=== PATIENT | female | born 1990 | race Caucasian/White ===

== ENCOUNTER 2019-08-11 14:48 | Emergency (ER) | payer MEDICAID, SELFPAY ==
[2019-08-11 15:24] VITALS: BP 130/73; PULSE 91; RESP 23; TEMP 36.6; O2SAT 98; BMI 19.9
--- NOTE | 2019-08-11 15:29 | PC.NURSE ---
Patient seated in the waiting room. Will continue to monitor.
[2019-08-11 16:30] LABS: HCG Qualitative Urine. Negative (Negative)
[2019-08-11 16:49] LABS: Basophils # 0.1 10^3/uL (0.0-0.1); Basophils % 0.8 %; Hematocrit 46.1 % (37.0-47.0); Hemoglobin 15.3 g/dL (11.5-15.3); Lymphocytes # 1.5 10^3/uL (0.8-4.8); Lymphocytes % 16.1 %; Mean Corpuscular HGB Conc 33.2 g/dL (30.0-36.0); Mean Corpuscular Hemoglobin 30.8 pg (28.0-34.0); Mean Corpuscular Volume 92.8 fL (81-99); Mean Platelet Volume 11.4 fL (7.4-10.4); Monocytes # 0.6 10^3/uL (0.2-0.9); Monocytes % 6.4 %; Neutrophils # 7.1 10^3/uL (1.8-7.7); Neutrophils % 76.5 %; Nucleated Red Blood Cells % 0 %; Platelet Count 287 10^3/cmm (130-400); Red Blood Count 4.97 10^6/uL (4.1-5.3); White Blood Count 9.3 10^3/uL (4.0-10.0)
[2019-08-11 18:07] LABS: Alanine Aminotransferase 15 U/L (0-33); Albumin Level 4.7 g/dL (3.5-5.2); Alkaline Phosphatase 57 IU/L (35-105); Anion Gap 20.7 (5-19); Blood Urea Nitrogen 20 mg/dL (6-20); Calcium 9.8 mg/dL (8.5-10.5); Carbon Dioxide 20 mmol/L (22-29); Chloride 98 mmol/L (98-107); Globulin 4.3 g/dL (1.3-4.6); Glomerular Filtration Rate 100.4 mL/min (90-130); Glucose 101 mg/dL (74-109); Potassium 3.7 mmol/L (3.5-5.1); Sodium 135 mmol/L (136-145); Total Bilirubin 0.3 mg/dL (0.15-1.2)
[2019-08-11 18:08] LABS: Aspartate Amino Transferase 21 U/L (0-32); Lipase 16 U/L (13-60)
--- NOTE | 2019-08-11 18:55 | ED_ITS ---
Entered by Sadia Bruce, acting as scribe for Michelle Alvarado MD Aug 11, 2019 14:48 HPI - Abdominal Pain General: Chief Complaint: Abdominal Pain Stated Complaint: RIGHT SIDE PAIN Time Seen by Provider: 08/11/19 18:54 Source: patient, family and RN notes reviewed Mode of arrival: ambulatory Limitations: no limitations History of Present Illness: HPI narrative: 29 yo female presents to ED with complaints of RLQ abdominal pain and R flank pain. The patient states yesterday she felt fine. 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 She said she was up all night throwing up and had diarrhea. She said her back hurts all over but is worse on the R flank. MD elicited complaint: abdominal pain (RLQ) and flank pain (R) Pertinent past history: none Onset (ago): day(s) (last night) Pain Consistency: constant Location: RLQ and R flank Severity: severe Quality: cramping and aching Radiation: none Migration to: no migration Exacerbating factors: movement Relieving factors: nothing Associated Symptoms: Reports diarrhea, nausea and vomiting; Denies chills, dysuria and fever(s) Review of Systems Const: Denies: fever, chills, body aches or change in appetite Eyes: Denies: blurry vision or eye discomfort ENMT: Denies: throat pain or dental pain Card: Denies: chest pain Resp: Denies: shortness of breath GI: Reports: abdominal pain, nausea, vomiting and diarrhea : Denies: painful urination Musc: Denies: neck pain Skin/Breast: Denies: rash Neuro: Denies: headache Psych: Denies: depression Artie/Lymph: Denies: easy bruising All/Imm: Denies: hives PFSH ED PFSH: Statuses (acute, chronic, etc) shown below reflect problem list status as previously entered and may not be historically accurate Social History Smoking and tobacco status: never smoked Physical Exam Const: COMMON NORMALS: no apparent distress, oriented x3 and healthy appearing HENMT: COMMON NORMALS: normocephalic and head/scalp atraumatic HEAD & SCALP: normocephalic and atraumatic Eye: COMMON NORMALS: PERRL and EOMs intact bilaterally PUPIL: Yes PERRL Neck/C-Spine: COMMON NORMALS: full ROM and supple Chest: COMMONS NORMALS: inspection of chest normal and palpation of chest normal Resp: COMMON NORMALS: normal respiratory effort, no retractions, no use of accessory muscles and clear to auscultation bilaterally AUSCULTATION: clear to auscultation bilaterally Cardio: COMMON NORMALS: regular rate, regular rhythm and no murmurs RATE: regular rate RHYTHM: regular rhythm GI: COMMON NORMALS: normal to inspection, nondistended, normoactive bowel sounds, soft to palpation and no masses PALPATION: Yes soft OTHER: rlq tenderness Extremity: COMMON NORMALS: normal to inspection and full ROM Neuro: COMMON NORMALS: oriented x3, moves all extremities and no focal motor deficits Psych: COMMON NORMALS: mental status grossly normal, thought process normal and cooperative THOUGHT PROCESS: normal thought process Skin: COMMON NORMALS: no rashes or lesions noted and no wounds GENERAL SKIN EXAM: no rashes or lesions noted Course Vital Signs: Vital signs: Vital Signs Temperature 98 F 08/11/19 15:24 Pulse Rate 91 08/11/19 15:24 Respiratory Rate 16 08/11/19 19:55 Blood Pressure 130/73 08/11/19 15:24 Pulse Oximetry 98 08/11/19 15:24 MDM - Abdominal Pain MDM Narrative: Medical decision making narrative: Patient presents here with right lower abdominal pain. Patient CT showed colitis. She is well-appearing here otherwise. I spoke to her and discussed findings and will start her on Augmentin. She is to follow-up with her primary care doctor in 3 to 5 days and return to the ER if worsening. Lab Data: Labs: Lab Results 08/11/19 08/11/19 08/11/19 Range/Units 16:09 16:40 17:25 WBC 9.3 (4.0-10.0) 10^3/ uL RBC 4.97 (4.1-5.3) 10^6/u L Hgb 15.3 (11.5-15.3) g/dL Hct 46.1 (37.0-47.0) % MCV 92.8 (81-99) fL MCH 30.8 (28.0-34.0) pg MCHC 33.2 (30.0-36.0) g/dL RDW 13.0 (12.1-15.1) % Plt Count 287 (130-400) 10^3/c mm MPV 11.4 H (7.4-10.4) fL Neut % (Auto) 76.5 % Lymph % (Auto) 16.1 % Patrick % (Auto) 6.4 % Eos % (Auto) 0.0 % Baso % (Auto) 0.8 % Neut # (Auto) 7.1 (1.8-7.7) 10^3/u L Lymph # (Auto) 1.5 (0.8-4.8) 10^3/u L Patrick # (Auto) 0.6 (0.2-0.9) 10^3/u L Eos # (Auto) 0.0 (0.0-0.8) 10^3/u L Baso # (Auto) 0.1 (0.0-0.1) 10^3/u L Nucleated RBC % (a uto) 0 % Nucleated RBCs # 0.0 /100WBC Sodium 135 L (136-145) mmol/L Potassium 3.7 (3.5-5.1) mmol/L Chloride 98 (98-107) mmol/L Carbon Dioxide 20 L (22-29) mmol/L Anion Gap 20.7 H (5-19) BUN 20 (6-20) mg/dL Creatinine 0.7 (0.5-0.9) mg/dL GFR Calculation 100.4 (90-130) mL/min Glucose 101 (74-109) mg/dL Calcium 9.8 (8.5-10.5) mg/dL Total Bilirubin 0.3 (0.15-1.2) mg/dL AST 21 (0-32) U/L ALT 15 (0-33) U/L Alkaline Phosphata se 57 (35-105) IU/L Total Protein 9.0 H (6.6-8.7) g/dL Albumin 4.7 (3.5-5.2) g/dL Globulin 4.3 (1.3-4.6) g/dL Lipase 16 (13-60) U/L HCG, Qual Negative (Negative) Discharge Plan Discharge Patient Disposition: Home, Self-Care Clinical Impression: Colitis Condition: Stable Prescriptions: New EC-Naprosyn 500 mg tablet,delayed release (DR/EC) 500 mg PO BID PRN (Reason: pain) Qty: 20 RF: 0 Augmentin 875-125 mg tablet 1 tab PO Q12H Qty: 14 RF: 0 Discharge Orders: Discharge Order (Routine); Ordered 08/11/19 Ordered By: Michelle Alvarado Referrals: Tanya Sheffield MD [Primary Care Provider] - 4-7 days Discharge Diet: Advance as tolerated Discharge Activity: Resume usual activity Patient Instructions: Infectious Colitis (ED) Coding Level of Care Code ED Juice Scaleman for [facility] Fwd The documentation recorded by the Janis barahona Valerie R, accurately reflects the service I personally performed and the decisions made by Jenny sharp Korby, MD Aug 11, 2019 14:48
--- NOTE | 2019-08-11 18:58 | CTR_ITS ---
PROCEDURE INFORMATION: Exam: CT Abdomen And Pelvis With Contrast Exam date and time: 08/11/2019 7:22 PM Age: 29 years old Clinical indication: Nausea and vomiting; Abdominal pain; Patient HX: Rlq and back pain with n/v since yesterday. ; Additional info: Abd pain TECHNIQUE: Imaging protocol: Computed tomography of the abdomen and pelvis with intravenous contrast. Total DLP: 469.68 mGy-cm Radiation optimization: All CT scans at this facility use at least one of these dose optimization techniques: automated exposure control; mA and/or kV adjustment per patient size (includes targeted exams where dose is matched to clinical indication); or iterative reconstruction. Contrast material: OMNI 300; Contrast volume: 75 ml; Contrast route: 22G; COMPARISON: CT abdomen pelvis w con* [id number] 11/01/2017 7:52 PM FINDINGS: Liver: There is a diffuse decrease in hepatic parenchymal density, consistent with fatty infiltration. Gallbladder and bile ducts: Normal. No calcified stones. No ductal dilation. Pancreas: Normal. No ductal dilation. Spleen: Normal. No splenomegaly. Adrenals: Normal. No mass. Kidneys and ureters: There is no evidence of hydronephrosis. There is no evidence of renal calcifications. Stomach and bowel: There is wall thickening in the distal sigmoid colon and rectum with haziness of the adjacent fat compatible with distal colitis. The loops of small bowel have an appropriate appearance. Appendix: No evidence of appendicitis. Intraperitoneal space: Unremarkable. No free air. No significant fluid collection. Vasculature: Unremarkable.No abdominal aortic aneurysm. Lymph nodes: Unremarkable.No enlarged lymph nodes. Bladder: There is nonspecific bladder wall thickening. This may be related to incomplete distention. Reproductive: Unremarkable as visualized. Bones/joints: Unremarkable. No acute fracture. Soft tissues: Unremarkable. CT/CT abdomen pelvis w con* [id number] IMPRESSION: There is wall thickening in the distal sigmoid colon and rectum with haziness of the adjacent fat compatible with distal colitis. Radiation Dose CTDIVOL = (mGy): DLP = 469.68 (mGy-cm)
[2019-08-11] MEDS: iohexol 300 mg/mL 100 mL Btl IV (19:24)
[2019-08-11 19:55] VITALS: RESP 16
[2019-08-11] MEDS: ondansetron 2 mg/ML SDV 2 mL 4 MG IVP (19:55)
[2019-08-11] MEDS: morphine 4 mg/mL SDV 1 mL IVP (19:55)
[2019-08-11] MEDS: sodium chloride 0.9% 1,000 ML 999 ML IV (19:55)
[2019-08-11 20:52] VITALS: BP 101/62; PULSE 68; RESP 16; TEMP 37.1; O2SAT 100
== END 2019-08-11 20:48 | disposition home or self-care (01) ==
PROVIDERS: Emergency Provider Emergency Medicine; Family Provider Family Medicine; PCP Family Medicine
DX: K52.9 Noninfective gastroenteritis and colitis, unspecified (principal)
CPT/HCPCS: 36415; 74177; 80053; 81025; 83690; 85025; 96360; 96361; 96374; 96375; 99281; 99283; J2270; J2405; J7030; Q9967

== ENCOUNTER → 2022-04-18 15:36 | Outpatient (BNVA) | payer BC, MEDICAID, SELFPAY | PROVIDERS: Family Provider Family Medicine; PCP Family Medicine; Visit Provider Physician Assistant | DX: M54.12 Radiculopathy, cervical region (principal); M25.512 Pain in left shoulder; M40.202 Unspecified kyphosis, cervical region | CPT/HCPCS: 72050; 73030 ==

== ENCOUNTER 2022-04-19 09:50 | Outpatient (CLI) | payer BC, MEDICAID, SELFPAY ==
--- NOTE | 2022-04-19 09:30 | MR_ITS ---
WS: [id number] MRI CERVICAL SPINE NONCONTRAST TECHNIQUE: Sagittal T1, T2 and STIR imaging. Axial T2, gradient, and fiesta imaging. CLINICAL INFORMATION: pain COMPARISON: None. FINDINGS: Straightening of the normal cervical lordosis. Cord signal is normal. No high-grade central canal estefany rowing. C2-C3: Normal. C3-C4: No significant disc bulging. Mild facet arthropathy. Spinal canal and foramen are patent. C4-C5: No significant disc bulging. Mild facet arthropathy. Spinal canal and foramen are patent. C5-C6: Slight annular bulging. Mild facet arthropathy. Spinal canal and foramen are patent. C6-C7: No significant disc bulging. Mild facet arthropathy. Spinal canal is patent. Mild LEFT bony fo raminal narrowing. C7-T1: Normal. Prevertebral soft tissues: Normal. 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 MR/MR cervical spin wo con* [id number] IMPRESSION: 1. Straightening of the normal cervical lordosis. No high-grade central canal narrowing. Cord signal is normal. 2. Mild facet arthropathy C4-C5 C5-C6 and C6-C7. 3. Mild LEFT C6-C7 bony foraminal narrowing. 4. Minimal disc bulging C4-C5 and C5-C6. 5. Chiari I malformation with cerebellar tonsils 5.6 mm below the foramen magn um. This can be further evaluated with MRI head for assessment of the intracran ial structures.
== END 2022-04-19 09:51 | disposition home or self-care (01) ==
LOC: RAD 09:51
PROVIDERS: Family Provider Family Medicine; PCP Family Medicine; Visit Provider Physician Assistant
DX: M47.812 Spondylosis without myelopathy or radiculopathy, cervical region (principal); M48.02 Spinal stenosis, cervical region; M50.322 Other cervical disc degeneration at C5-C6 level; G93.5 Compression of brain
CPT/HCPCS: 72141

== ENCOUNTER 2022-06-14 14:33 | Outpatient (CLI) | payer BC, MEDICAID, SELFPAY ==
--- NOTE | 2022-06-14 14:30 | MR_ITS ---
WS: [id number] MRI LEFT SHOULDER NONCONTRAST TECHNIQUE: Sagittal T2, coronal T1, T2 and proton density imaging. Axial gradient PDE imaging. CLINICAL INFORMATION: pain COMPARISON: None. FINDINGS: Normal AC joint. Mild downsloping acromion. Mild narrowing of the subacromial space. Normal rotator c uff. Normal supraspinatus and infraspinatus. Normal teres minor. Normal subscapularis. Normal bone marrow signal in the humerus and glenoid. Normal biceps tendon in the bicipital groove. N ormal biceps labral anchor. Tiny trace of subcoracoid fluid. Intra-articular biceps tendon is normal. Glenoid labrum appears grossly normal. MR/MR shoulder LT wo con* [id number] IMPRESSION: 1. Mild downsloping acromion. Mild narrowing of the subacromial space. 2. Normal rotator cuff. 3. Normal biceps tendon in the bicipital groove. Normal biceps labral anchor. 4. Trace subcoracoid fluid. 5. No other remarkable findings.
== END 2022-06-14 14:34 | disposition home or self-care (01) ==
LOC: RAD 14:34
PROVIDERS: Family Provider Family Medicine; PCP Family Medicine; Visit Provider Orthopaedic Surgery
DX: M25.512 Pain in left shoulder (principal)
CPT/HCPCS: 73221

== ENCOUNTER → 2022-10-12 09:00 | Outpatient (BNVA) | payer BC, MEDICAID, SELFPAY | PROVIDERS: Family Provider Family Medicine; PCP Family Medicine; Visit Provider Obstetrics & Gynecology | DX: Z00.00 Encounter for general adult medical examination without abnormal findings (principal); N93.9 Abnormal uterine and vaginal bleeding, unspecified | CPT/HCPCS: 80053; 81025; 84443; 85025; 87624 ==

== ENCOUNTER 2022-10-15 13:35 | Emergency (ER) | payer BC, MEDICAID, SELFPAY ==
[2022-10-15 13:56] VITALS: BP 106/72; PULSE 94; RESP 16; TEMP 37.1; O2SAT 97
--- NOTE | 2022-10-15 14:20 | W.ED.FEMALGU ---
HPI - Female Genitourinary General: Chief complaint: Vaginal Bleeding Stated complaint: abd pain, n/v Time Seen by Provider: 10/15/22 14:03 Source: patient and family (mother) Mode of arrival: ambulatory Limitations: no limitations History of Present Illness: Patient is a 32-year-old female presents to ED today along with her mother for concerns of pelvic pain primarily situated on her left side. Patient states she has had pain and heavy vaginal bleeding for approximately 4 months now. She was recently seen by [facility] Dr. Morriosn who performed pelvic exam on , scheduled her for an outpatient ultrasound, started her on oral contraception tabs to help with the bleeding, and discussed plan for possible hysteroscopy/polypectomy/endometrial biopsy. Patient states she has a strong family history of gynecologic cancers including breast, ovarian, uterine. She states over the past several days her pain has become significantly worse. She states vaginal bleeding has vastly improved after starting the norethindrone/ethinyl estradiol tabs. No vaginal discharge. She is sexually active/monogamous with her . She states she feels nauseous secondary to pain. No vomiting. No changes in bowel movements. No urinary complaints. No fevers. MD elicited complaint: pelvic pain Onset (ago): month(s) Severity: severe Female Urogenital Radiation: LLQ Quality of pain: sharp Consistency: constant Vaginal discharge: none Vaginal bleeding: scant (after starting OCPs) Exacerbating factors: none Relieving factors: none Associated symptoms: Reports abdominal pain and nausea; Deny headache(s) or vaginal discharge Treatment prior to arrival: none Sexual activity: Yes (monogamous with ) Patient : No Review of Systems Const: Denies: fever(s), chills, body aches, fatigue or malaise Card: Denies: chest pain Resp: Denies: dyspnea GI: Reports: abdominal pain and nausea; Denies: vomiting, diarrhea, constipation or change in bowel habits : Reports: vaginal bleeding (subsided after starting oral contraception) and pelvic pain; Denies: flank pain, difficulty voiding, dysuria, urinary frequency, urinary urgency, urinary hesitancy, hematuria, genital lesions, genital pruritis, vaginal odor or vaginal discharge Musc: Denies: neck pain, back pain, extremity pain or joint pain Skin/Breast: Denies: rash Neuro: Denies: headache(s) or dizziness [facility] ED PFSH: Family History Unknown Cancer Great great grandmother, breast cancer x3 maternal aunts, breast cancer maternal grandmother, ovarian cancer maternal aunt, ovarian cancer maternal grandmother, uterine cancer maternal grandmother, bladder cancer maternal grandmother, diabetes x2 maternal uncles, diabetes maternal grandmother, HTN and stroke Maternal uncle, HTN and Heart disease Other COPD (chronic obstructive pulmonary disease) Dementia Diabetes Social History Marital status: Life Partner Number of children: 2 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 [employer] Physical Exam Const: COMMON NORMALS: average body habitus, patient oriented x3, no limitations, alert and well nourished GENERAL APPEARANCE: cooperative and in distress (appears uncomfortable secondary to pain) NUTRITIONAL APPEARANCE: thin ORIENTATION/CONSCIOUSNESS: Yes awake, Yes oriented to person, Yes oriented to place and Yes oriented to time HENMT: COMMON NORMALS: normocephalic and atraumatic HEAD & SCALP: normal to inspection, normocephalic and atraumatic Resp: COMMON NORMALS: normal respiratory effort and clear to auscultation bilaterally AUSCULTATION: clear to auscultation bilaterally Cardio: COMMON NORMALS: regular rate and regular rhythm RATE: regular rate RHYTHM: regular rhythm GI: COMMON NORMALS: Normal to inspection, nondistended, normoactive bowel sounds present, Soft to palpation, No hepatosplenomegaly present and no masses INSPECTION: Yes normal to inspection AUSCULTATION: Yes normoactive bowel sounds PALPATION: Yes Soft to palpation, Yes Tenderness to palpation present (GI) (L lower abdomen/pelvis; lidocaine patches on area), No Rigid due to palpation and Yes No hepatosplenomegaly present : COMMON NORMALS: Yes no CVA tenderness BLADDER/KIDNEY EXAM: Yes no CVA tenderness OTHER: deferred as patient just received pelvic exam by [facility] [facility] [employer] [facility] 3 days ago Back/Pelvis: COMMON NORMALS: no CVA tenderness Neuro: ABBY COMA SCALE: document GCS findings Abby coma scale eye opening: Spontaneous Abby coma scale verbal response: Orientated Abby coma scale motor response: Obey commands Abby coma scale total score: 15 COMMON NORMALS: patient oriented x3, moves all extremities, no focal motor deficits and no sensory deficits noted SENSORIUM/ORIENTATION: Yes alert, Yes oriented to person, Yes oriented to place and Yes oriented to time Skin: COMMON NORMALS: no rashes or lesions noted GENERAL SKIN EXAM: no rashes or lesions noted Course Vital Signs: Vital signs: Vital Signs Temperature 98.7 F 10/15/22 13:56 Pulse Rate 77 10/15/22 15:30 Respiratory Rate 14 10/15/22 16:02 Blood Pressure 107/76 10/15/22 15:30 Pulse Oximetry 98 10/15/22 16:02 MDM - Female Medical Decision Making Patient feeling better with medications given here. Her vital signs are stable. Blood work is unremarkable. UA showing hematuria most likely from her vaginal bleeding. It is also contaminated. Ultrasound was negative. Recommend continuing current plan to follow-up with [facility] for further evaluation and treatment of her pain including hysteroscopy/endometrial biopsy and possible exploratory laparoscopy. Lab Data 10/15/22 14:45 10/15/22 14:45 Radiology Impressions Pelvis Ultrasound 10/15/22 14:32 IMPRESSION: 1. Negative uterus and endometrium. 2. Negative bilateral ovaries Laboratory Results WBC 9.2 10^3/uL (4.0-10.0) 10/15/22 14:45 RBC 4.57 10^6/uL (4.1-5.3) 10/15/22 14:45 Hgb 13.8 g/dL (11.5-15.3) 10/15/22 14:45 Hct 41.6 % (37.0-47.0) 10/15/22 14:45 MCV 91.0 fl (81-99) 10/15/22 14:45 MCH 30.2 pg (28.0-34.0) 10/15/22 14:45 MCHC 33.2 g/dL (30.0-36.0) 10/15/22 14:45 RDW 14.4 % (12.1-15.1) 10/15/22 14:45 Plt Count 394 10^3/cmm (130-400) 10/15/22 14:45 MPV 9.8 fL (7.4-10.4) 10/15/22 14:45 Neut % (Auto) 65.9 % 10/15/22 14:45 Lymph % (Auto) 26.5 % 10/15/22 14:45 [place] % (Auto) 5.7 % 10/15/22 14:45 Eos % (Auto) 0.3 % 10/15/22 14:45 Baso % (Auto) 1.2 % 10/15/22 14:45 Neut # (Auto) 6.07 10^3/uL (1.8-7.7) 10/15/22 14:45 Lymph # (Auto) 2.5 10^3/uL (0.8-4.8) 10/15/22 14:45 [place] # (Auto) 0.5 10^3/uL (0.2-0.9) 10/15/22 14:45 Eos # (Auto) 0.0 10^3/uL (0.0-0.8) 10/15/22 14:45 Baso # (Auto) 0.1 10^3/uL (0.0-0.1) 10/15/22 14:45 Nucleated RBC % (auto) 0 % 10/15/22 14:45 Nucleated RBCs # 0.0 /100WBC 10/15/22 14:45 Sodium 132 mmol/L (136-145) L 10/15/22 14:45 Potassium 3.6 mmol/L (3.5-5.1) 10/15/22 14:45 Chloride 100 mmol/L (98-107) 10/15/22 14:45 Carbon Dioxide 18 mmol/L (22-29) L 10/15/22 14:45 Anion Gap 17.6 (5-19) 10/15/22 14:45 BUN 11 mg/dL (6-20) 10/15/22 14:45 Creatinine 0.8 mg/dL (0.5-0.9) 10/15/22 14:45 GFR Calculation 84.2 mL/min (90-130) L 10/15/22 14:45 Glucose 87 mg/dL (65-115) 10/15/22 14:45 Calculated Osmolality 273 mOsm/kg (285-295) L 10/15/22 14:45 Calcium 9.3 mg/dL (8.5-10.5) 10/15/22 14:45 Total Bilirubin 0.2 mg/dL (0.15-1.2) 10/15/22 14:45 AST 41 U/L (0-32) H 10/15/22 14:45 ALT 49 U/L (0-33) H 10/15/22 14:45 Alkaline Phosphatase 59 U/L (35-105) 10/15/22 14:45 Total Protein 8.1 g/dL (6.6-8.7) 10/15/22 14:45 Albumin 4.5 g/dL (3.5-5.2) 10/15/22 14:45 Globulin 3.6 g/dL (1.3-4.6) 10/15/22 14:45 Lipase 19 U/L (13-60) 10/15/22 14:45 HCG, Qual Negative (Negative) 10/15/22 14:30 Urine Color Yellow (Yellow) 10/15/22 14:30 Urine Appearance Cloudy (CLEAR) A 10/15/22 14:30 Urine pH 5 (5-7) 10/15/22 14:30 Ur Specific [place] 1.010 (1.005-1.030) 10/15/22 14:30 Urine Protein Neg (Negative) 10/15/22 14:30 Urine Glucose (UA) Norm (Normal) 10/15/22 14:30 Urine Ketones Negative (Negative) 10/15/22 14:30 Urine Blood 3+ (Negative) H 10/15/22 14:30 Urine Nitrate Negative (Negative) 10/15/22 14:30 Urine Bilirubin Neg (Negative) 10/15/22 14:30 Urine Urobilinogen Norm mg/dL (Negative) 10/15/22 14:30 Ur Leukocyte Esterase Negative (Negative) 10/15/22 14:30 Urine RBC 0-4 /hpf (0-2) H 10/15/22 14:30 Urine WBC 0-4 /hpf (0-5) H 10/15/22 14:30 Ur Squamous Epith Cells 15-25 /hpf (0-5) H 10/15/22 14:30 Amorphous Sediment Not Reportable 10/15/22 14:30 Urine Bacteria Trace /hpf (NONE) 10/15/22 14:30 Discharge Plan Discharge Patient Disposition: Home Clinical Impression: Pelvic pain Condition: Stable Prescriptions: New hydrocodone-acetaminophen 5-325 mg tablet 1 tab PO Q6H PRN (Reason: pain) Qty: 14 0RF ondansetron 4 mg tablet,disintegrating 4 mg PO Q8H PRN (Reason: nausea and vomiting) Qty: 14 0RF No Action Pirmella 1-35 mg-mcg tablet 1 tab PO DIRECTED Qty: 84 0RF Rx Instructions: take 1 tab in the am & 1 tab in the pm for 5 days. THEN take 1 tab daily. Discharge Orders: Discharge ED (Routine); Ordered 10/15/22 Ordered By: Pamela Cortes Referrals: Jorge Morrison MD [Primary Care Provider] - Patient Instructions: Pelvic Pain (ED) Activity Restrictions/Additional Instructions: As we discussed please contact Dr. Morrison this week to schedule a follow-up visit and inform him that pelvic ultrasound was completed in the emergency department today. You need to return to the emergency department for worsening or severe pelvic pain that is not controlled with pain medications at home, fevers, significant vaginal discharge or bleeding, repetitive episodes of vomiting, generally feeling worse or unwell, or any other concerns you may have. I hope you begin to feel better soon. Coding Level of Care Code ED Teacher Lip Reading for Jhoan Palmer
--- NOTE | 2022-10-15 14:32 | USR_ITS ---
PROCEDURE INFORMATION: Exam: US Nonobstetric Pelvis; Complete Exam date and time: 10/15/2022 3:04 PM Age: 32 years old Clinical indication: Pelvic pain; Additional info: Pelvic pain/mainly L TECHNIQUE: Imaging protocol: Transabdominal pelvic nonobstetric ultrasound. Complete exam. Real time ultrasound with image documentation. COMPARISON: CT abdomen pelvis w con* [id number] 08/11/2019 7:35 PM FINDINGS: Uterus: Uterus is normal. Endometrial stripe is 7.2 mm Uterus measures 5.5 cm x 7.8 cm x 5.1 cm Right ovary/adnexa: Ovary is normal. No mass. Normal blood flow. 2.7 cm x 2.9 x 1.5cm Left ovary/adnexa: Ovary is normal. No mass. Normal blood flow. Intraperitoneal space: No intraperitoneal fluid. 3.1 cm x 3.1 cm x 2.1 cm Urinary bladder: Normal. US/US pelvic complete* [id number] IMPRESSION: 1. Negative uterus and endometrium. 2. Negative bilateral ovaries
[2022-10-15 14:49] VITALS: RESP 14
[2022-10-15] MEDS: morphine 4 mg/mL SDV 1 mL IVP (14:49)
[2022-10-15] MEDS: ondansetron 2 mg/ML SDV 2 mL 4 MG IVP (14:50)
[2022-10-15 14:56] LABS: Basophils # 0.1 10^3/uL (0.0-0.1); Basophils % 1.2 %; Eosinophils % 0.3 %; Hematocrit 41.6 % (37.0-47.0); Hemoglobin 13.8 g/dL (11.5-15.3); Lymphocytes # 2.5 10^3/uL (0.8-4.8); Lymphocytes % 26.5 %; Mean Corpuscular HGB Conc 33.2 g/dL (30.0-36.0); Mean Corpuscular Hemoglobin 30.2 pg (28.0-34.0); Mean Platelet Volume 9.8 fL (7.4-10.4); Monocytes # 0.5 10^3/uL (0.2-0.9); Monocytes % 5.7 %; Neutrophils # 6.07 10^3/uL (1.8-7.7); Neutrophils % 65.9 %; Nucleated Red Blood Cells % 0 %; Platelet Count 394 10^3/cmm (130-400); Red Blood Count 4.57 10^6/uL (4.1-5.3); Red Cell Distribution Width 14.4 % (12.1-15.1); White Blood Count 9.2 10^3/uL (4.0-10.0)
[2022-10-15 15:09] LABS: HCG Qualitative Urine. Negative (Negative)
[2022-10-15 15:23] LABS: Alanine Aminotransferase 49 U/L (0-33); Albumin Level 4.5 g/dL (3.5-5.2); Alkaline Phosphatase 59 U/L (35-105); Aspartate Amino Transferase 41 U/L (0-32); Blood Urea Nitrogen 11 mg/dL (6-20); Calcium 9.3 mg/dL (8.5-10.5); Carbon Dioxide 18 mmol/L (22-29); Chloride 100 mmol/L (98-107); Globulin 3.6 g/dL (1.3-4.6); Glomerular Filtration Rate 84.2 mL/min (90-130); Glucose 87 mg/dL (65-115); Lipase 19 U/L (13-60); Osmolality Calculated 273 mOsm/kg (285-295); Sodium 132 mmol/L (136-145); Total Bilirubin 0.2 mg/dL (0.15-1.2); Total Protein 8.1 g/dL (6.6-8.7)
[2022-10-15 15:25] LABS: Urine Appearance Cloudy (CLEAR); Urine Color Yellow (Yellow); pH Urine 5 (5-7)
[2022-10-15 15:26] LABS: Add Urine Microscopic? YES; Bacteria Urine TRACE /hpf; Bilirubin Urine Neg (Negative); Blood Urine 3+ (Negative); Glucose Urine UA Norm (Normal); Ketones Urine Negative (Negative); Leukocyte Esterase Urine Negative (Negative); Nitrate Urine Negative (Negative); Protein Urine Neg (Negative); RBC Urine 0-4 /hpf (0-2); Squamous Epithelial Cell Urine 15-25 /hpf (0-5); Urobilinogen Urine Norm (Negative); WBC Urine 0-4 /hpf (0-5)
[2022-10-15 15:28] LABS: Anion Gap 17.6 (5-19); Potassium 3.6 mmol/L (3.5-5.1)
[2022-10-15 15:30] VITALS: BP 107/76; PULSE 77; RESP 16; O2SAT 99
[2022-10-15 16:02] VITALS: RESP 14; O2SAT 98
[2022-10-15] MEDS: HYDROmorphone 1 mg/mL INJ 1 mL 0.5 MG IVP (16:02)
== END 2022-10-15 17:07 | disposition home or self-care (01) ==
PROVIDERS: Emergency Medicine; Emergency Provider Physician Assistant; PCP Obstetrics & Gynecology
DX: R10.2 Pelvic and perineal pain (principal)
CPT/HCPCS: 76856; 80053; 81001; 81025; 83690; 85025; 96374; 96375; 99285; J1170; J2270; J2405

== ENCOUNTER 2022-10-19 11:49 | Day surgery (SDC) | payer BC, MEDICAID, SELFPAY ==
[2022-10-18 12:39] VITALS: BMI 20.9
[2022-10-19] VITALS (7 sets, daily range): BP systolic 86–111; BP diastolic 47–71; PULSE 59–75; RESP 16–18; TEMP 36.6–36.7; O2SAT 96–99
--- NOTE | 2022-10-19 09:05 | W.PM.OPSUD ---
Surgery/Procedure H&P Update DATE OF PROCEDURE: October 19, 2022 DATE H&P PERFORMED: 10/19/22 CHANGES TO PREVIOUS DOCUMENTATION: none PRIMARY INDICATION FOR PROCEDURE: abnormal uterine bleeding PLANNED PROCEDURE: Operation Date: 10/19/22 13:35 Proposed Procedures p Hysteroscopy with Myosure with endometrial sampling [id number], Possible endometrial polypectomy 42002,R10.2,N93.9(Not Applicable) - Jorge Morrison MD s Poylpectomy(Not Applicable) - Jorge Morrison MD
[2022-10-19 12:13] LABS: OR HCG Qualitative Urine Negative (Negative)
[2022-10-19] MEDS: sodium chloride 0.9% 1,000 ML 30 ML IV (12:33)
--- NOTE | 2022-10-19 13:38 | P.HP_ITS ---
Same Day Surgery H&P Indication for Procedure/HPI DATE OF PROCEDURE: October 19, 2022 CHIEF COMPLAINT/INDICATIONFOR SURGICAL PROCEDURE: abnormal uterine bleeding PREOP DIAGNOSIS: abnormal uterine bleeding PLANNED PROCEDURE: Operation Date: 10/19/22 13:35 Proposed Procedures p Hysteroscopy with Myosure with endometrial sampling [id number], Possible endometr ial polypectomy 21957,R10.2,N93.9(Not Applicable) - Jorge Morrison MD s Poylpectomy(Not Applicable) - Jorge Morrison MD Medications/Allergies* Allergies/Adverse Reactions Allergy/AdvReac Type Severity Reaction Status Date / Time cefixime [From Suprax] Allergy ALGY-Hives Verified 10/12/22 08:13 Current Medications: Generic Name Dose Route Start Last Admin Trade Name Freq PRN Reason Stop Dose Admin Sodium Chloride 1,000 mls @ 30 mls/hr 10/19/22 12:00 10/19/22 12:33 Sodium Chloride 0.9% IV 10/20/22 11:59 30 mls/hr .Q24H TIFFANIE Administration Pertinent History/Comorbid Conditions* Family History (Updated 10/12/22 @ 08:24 by Evangelina Sharma LPN) Diabetes Dementia COPD (chronic obstructive pulmonary disease) Cancer Unknown Great great grandmother, breast cancer x3 maternal aunts, breast cancer maternal grandmother, ovarian cancer maternal aunt, ovarian cancer maternal grandmother, uterine cancer maternal grandmother, bladder cancer maternal grandmother, diabetes x2 maternal uncles, diabetes maternal grandmother, HTN and stroke Maternal uncle, HTN and Heart disease Social History Marital status: Life Partner Number of children: 2 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
--- NOTE | 2022-10-19 14:04 | ANES.PREANE2 ---
Pre-Anesthetic Assessment Height/Weight: Height 1.52 m Weight 48.534 kg Temp Pulse Resp BP Pulse Ox O2 Del Method 98 F 75 18 110/67 99 Room Air 10/19/22 12:02 10/19/22 12:02 10/19/22 12:02 10/19/22 12:02 10/19/22 12:02 10/19/22 12:02 Preop Diagnosis: abnormal uterine bleeding Operation Date: 10/19/22 13:35 Proposed Procedures p Hysteroscopy with Myosure with endometrial sampling 22696, Possible endometrial polypectomy 10122,R10.2,N93.9(Not Applicable) - Jorge Morrison MD s Poylpectomy(Not Applicable) - Jorge Morrison MD Familial anesthetic complications: none Was Beta Latoya taken within 24 hours: N/A Was Clonidine taken within 24 hours: N/A Last intake: Intake Last Liquid Date 10/18/22 Last Liquid Time 23:00 Last Solid Date 10/18/22 Last Solid Time 23:00 Social No alcohol and No tobacco Exam alert, oriented x 3, clear to auscultation bilaterally and regular rate & rhythm Airway Submandibular: within normal limits Cervical ROM: within normal limits Mallampati: Class II Dentition: full History/ROS No significant history except as noted Anesthetic Plan ASA status: 1 Anesthesia: General Medications/Allergies Home Medications Medication Instructions Recorded Confirmed Last Taken Type norethindrone 1 mg-ethinyl 1 tab PO DIRECTED AUB #84 tabs 10/12/22 10/18/22 10/19/22 Rx estradiol 35 mcg tablet (Pirmella) hydrocodone 5 mg-acetaminophen 325 1 tab PO Q6H PRN pain #14 tabs 10/15/22 10/18/22 10/19/22 Rx mg tablet ondansetron 4 mg disintegrating 4 mg PO Q8H PRN nausea and 10/15/22 10/18/22 10/19/22 Rx tablet vomiting #14 tabs Allergies Allergy/AdvReac Type Severity Reaction Status Date / Time cefixime [From Suprax] Allergy ALGY-Hives Verified 10/12/22 08:13 Current Medications Generic Name Dose Route Start Last Admin Trade Name Freq PRN Reason Stop Dose Admin Sodium Chloride 1,000 mls @ 30 mls/hr 10/19/22 12:00 10/19/22 12:33 Sodium Chloride 0.9% IV 10/20/22 11:59 30 mls/hr .Q24H TIFFANIE Administration PFSH Anesthesia Family History Unknown Cancer Great great grandmother, breast cancer x3 maternal aunts, breast cancer maternal grandmother, ovarian cancer maternal aunt, ovarian cancer maternal grandmother, uterine cancer maternal grandmother, bladder cancer maternal grandmother, diabetes x2 maternal uncles, diabetes maternal grandmother, HTN and stroke Maternal uncle, HTN and Heart disease Other COPD (chronic obstructive pulmonary disease) Dementia Diabetes Social History Marital status: Life Partner Number of children: 2 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
--- NOTE | 2022-10-19 14:50 | P.PCN_ITS ---
PACU note Narrative: VSS, Good respiratory effort, report to TECHNICAL PRODUCER Exam: awake
--- NOTE | 2022-10-19 14:50 | PM.PACU ---
PACU note Narrative: VSS, Good respiratory effort, report to POCKET AND PULLEY MACHINE OPERATOR Exam: awake
[2022-10-19] MEDS: HYDROcodone-acetaminophen 5-325 mg Tablet 1 TAB PO (15:15)
[2022-10-19] MEDS: ketorolac 30 mg/mL INJ IVP (15:18)
[2022-10-19] MEDS: HYDROmorphone 1 mg/mL INJ 1 mL 0.5 MG IVP (15:37)
--- NOTE | 2022-10-19 16:31 | ANE.PACU2 ---
Inpatient post-anesthesia follow up: Airway intact: Yes Vital signs: Temperature 98.0 F Pulse Rate 69 Respiratory Rate 18 Blood Pressure 111/71 Pulse Oximetry 99 Oxygen Delivery Me thod Room Air Oxygen Flow Rate Fraction of Inspir ed Oxygen Hydration adequate: Yes Nausea and vomiting: No Pain level: 4 Mental status: Baseline
--- NOTE | 2022-10-20 16:50 | PM.OP ---
Operative Report Date of procedure: October 19, 2022 Pre-op diagnosis: Preop Diagnosis abnormal uterine bleeding Post-op diagnosis: abnormal uterine bleeding normal endometrial cavity by hysteroscopy Post-op findings: normal endometrial cavity no polyps or fibroids small amount of endometrial tissue Procedure done: hysteroscopy, endometrial sampling using Myosure device Specimens removed/disposition: endometrial tissue Surgeon: Jorge Morrison M.D. Estimated blood loss (mL): 5 Estimated blood loss: 5 cc Complications: none Condition: stable Disposition: PACU Brief History: 32 y.o. with abnormal uterine bleeding Procedure: Informed consent for hysteroscopy, endometrial sampling, possible endometrial polypectomy signed. The patient was taken to the OR and placed on the table. Mask anesthesia was induced. The patient was placed in dorsolithotomy position. The perineum was prepped and draped in the usual fashion. A bivalve speculum was placed in the vagina. The anterior cervix was grasped with a sharp-toothed tenaculum. The uterus was sounded to 8 cm. The cervix was serially dilated with Hegar dilators. A hysteroscope was then placed into the endometrial cavity. No polyps or fibroids were seen. There was a small amount of endometrial tissue. No abnormalities were seen. The Myosure device was used to perform endometrial sampling from all quadrants of the uterus. Edndometrial tissue was obtained and sent to pathology. All instruments were then removed from the endometrial cavity, cervix and vagina. No bleeding was seen. The patient was then placed supine and sent to the RR in good condition. Postoperative condition: good EBL: 5 cc Spone and instrument counts correct x two
== END 2022-10-19 15:56 | disposition home or self-care (01) ==
PROVIDERS: PCP Obstetrics & Gynecology; Visit Provider Obstetrics & Gynecology
PROC: 0UDB8ZZ Extraction of Endometrium, Via Natural or Artificial Opening Endoscopic (ICD-10-PCS; CPT 58558; principal; 2022-10-19 13:25)
PROC: (CPT 58558; 2022-10-19 13:25)
DX: N93.9 Abnormal uterine and vaginal bleeding, unspecified (principal); R10.2 Pelvic and perineal pain
CPT/HCPCS: 58558; 81025; 84703; 88305; J1170; J1885; J2704; J3010; J7030

== ENCOUNTER → 2022-10-25 11:39 | Outpatient (BNVA) | payer BC, MEDICAID, SELFPAY | PROVIDERS: PCP Obstetrics & Gynecology; Visit Provider Obstetrics & Gynecology | DX: Z00.00 Encounter for general adult medical examination without abnormal findings (principal) | CPT/HCPCS: 80053; 81000; 85025; 87086 ==

== ENCOUNTER → 2023-03-19 09:00 | Outpatient (BNVA) | payer BC, MEDICAID, SELFPAY | PROVIDERS: PCP Obstetrics & Gynecology; Visit Provider Nurse Practitioner Family | DX: R05.9 Cough, unspecified (principal); J06.9 Acute upper respiratory infection, unspecified | CPT/HCPCS: 87426 ==

== ENCOUNTER → 2025-02-11 15:16 | Outpatient (BNVA) | payer OTHER, BC, MEDICAID, SELFPAY | PROVIDERS: Visit Provider Nurse Practitioner Women's Health | DX: N85.4 Malposition of uterus (principal); N85.00 Endometrial hyperplasia, unspecified; N92.1 Excessive and frequent menstruation with irregular cycle | CPT/HCPCS: 76830; 85025 ==

== ENCOUNTER 2025-03-27 18:24 | Emergency (ER) | payer OTHER, BC, MEDICAID, SELFPAY ==
--- OUTSIDE RECORDS SUMMARY | 2025-03-27 18:29 | XMS_ITS | Clinical Summary ---
Author Organization [facility] Address [address] [address] Phone Care Team Providers Care Town Administrator Name Role Phone Unavailable Primary Care Provider Unavailabl e Medications cyclobenzaprine (FLEXERIL) 10 mg tablet Take 1 Tablet (10 mg) by mouth 3 times daily as needed for Spasm. 15 Tablet 04/08/2022 Active Social History Tobacco Use Types Packs/Day Years Used Date Smoking Tobacco: Never Assessed Comments Unknown Sex and Gender Information Value Date Recorded Sex Assigned at Not on file Legal Sex Female 6:18 PM CDT Gender Identity Not on file Sexual Orientation Not on file Last Filed Vital Signs Vital Sign Reading Time Taken Comments Blood Pressure 111/78 04/08/2022 7:55 PM CDT Pulse 100 04/08/2022 6:55 PM CDT Temperature 36.8 C (98.2 F) 04/08/2022 7:55 PM CDT Respiratory Rate 16 04/08/2022 7:55 PM CDT Oxygen Saturation 98% 04/08/2022 7:55 PM CDT Inhaled Oxygen Concentration - - Weight 49.5 kg (109 lb 3.2 oz) 04/08/2022 6:28 P M CDT Height 152.4 cm (5') 04/08/2022 6:28 PM CDT Body Mass Index 21.33 04/08/2022 6:28 PM CDT Plan of Treatment Health Maintenance Due Date Last Done Comments DTAP/TDAP/TD VACCINES (1 - Tdap) 2011 HEPATITIS B VACCINES (1 of 3 - 19+ 3-dose series) 02/07 HPV/Cotest (21-29) 2013 HPV VACCINES (1 - 3-dose SCDM series) 2019 CERVICAL CANCER SCREENING 2022 HPV/Cotest (30-65) 2022 PAP SMEAR 2022 INFLUENZA VACCINE (#1) 2025 Insurance [employer] [place]
[2025-03-27 18:37] VITALS: BP 122/80; PULSE 109; RESP 14; TEMP 36.8; O2SAT 98
[2025-03-27 19:42] LABS: Glucose Urine UA Negative (Normal); Nitrate Urine Negative (Negative); Specific Gravity, Urine 1.013 (1.005-1.030)
[2025-03-27 19:45] LABS: Add Urine Microscopic? YES
[2025-03-27 20:02] VITALS: RESP 16; O2SAT 98
[2025-03-27] MEDS: morphine 4 mg/mL SDV 1 mL IVP (20:02)
[2025-03-27 20:03] LABS: Hematocrit 38.1 % (36-47); Hemoglobin 12.90 g/dL (11.27-16.99); Mean Corpuscular HGB Conc 33.9 g/dL (30-55); Mean Corpuscular Hemoglobin 30.5 pg (27-33); Mean Corpuscular Volume 90.1 fl (85-98); Nucleated Red Blood Cells % 0 %; Platelet Count 419 10^3/cmm (157-399); Red Blood Count 4.23 10^6/uL (3.85-5.65); White Blood Count 8.40 10^3/uL (3.29-11.43)
[2025-03-27] MEDS: ondansetron 2 mg/ML SDV 2 mL 4 MG IVP (20:03)
[2025-03-27 20:08] LABS: UA Slide Review UA Slide Review Perf
[2025-03-27] MEDS: tranexamic acid 1,000 MG/100 ML PREMIX 600 MG IV (20:10)
[2025-03-27 20:11] VITALS: BP 112/62; PULSE 86; O2SAT 98
[2025-03-27 20:21] LABS: HCG Qualitative Urine. Negative (Negative)
[2025-03-27 20:24] LABS: Alanine Aminotransferase 10 U/L (0-33); Albumin Level 4.2 g/dL (3.5-5.2); Alkaline Phosphatase 52 U/L (35-105); Anion Gap 14.3 (5-19); Aspartate Amino Transferase 13 U/L (0-32); Blood Urea Nitrogen 14 mg/dL (6-20); Calcium 9.3 mg/dL (8.5-10.5); Carbon Dioxide 22 mmol/L (22-29); Chloride 104 mmol/L (98-107); Creatinine Clr Calc Pharmacy 127.6433; Globulin 3.1 g/dL (1.3-4.6); Glucose 85 mg/dL (65-115); Osmolality Calculated 284 mOsm/kg (285-295); Potassium 3.3 mmol/L (3.5-5.1); Sodium 137 mmol/L (136-145); Total Protein 7.3 g/dL (6.6-8.7)
[2025-03-27 21:09] VITALS: BP 118/84; PULSE 81; O2SAT 97
[2025-03-27 21:33] VITALS: RESP 16; O2SAT 96
[2025-03-27] MEDS: oxyCODONE-APAP 5-325 mg Tablet 1 TAB PO (21:33)
[2025-03-27 21:39] VITALS: BP 131/56; PULSE 86; O2SAT 95
--- NOTE | 2025-03-28 06:01 | W.ED.FEMALGU ---
HPI - Female Genitourinary General: Chief complaint: Vaginal Bleeding Stated complaint: passing hand sized clots. Prince costa pain Time Seen by Provider: 03/27/25 19:43 History of Present Illness: 35-year-old female with chronic abnormal uterine bleeding presents with 10 days of heavy vaginal bleeding with palm-sized clots since 03/17 and severe cramping pain rated 8/10, described as labor-like. Reports bleeding approximately 3 weeks each month and soaked through three Depends today. Similar episodes for years; prior tranexamic acid (TXA) provided; hysteroscopy done. Trialed multiple hormonal methods; intrauterine device (IUD) expelled. Currently on a hormonal agent referred to as 'Permella/Eileen' [unclear exact medication name], intended to reduce bleeding rather than for contraception. Wishes to preserve fertility historically but now is open to hysterectomy; has OB surgery consult set for 04/[address] Morrison, whom the patient trusts. Transvaginal ultrasound in early February reportedly showed a thickened endometrium and a retroverted uterus. Denies fever, diarrhea, vomiting; endorses frequent lightheadedness. Dysuria reported; pain felt on left side with urination. No known family bleeding/clotting disorders. Emotional distress and functional impact noted (left work twice due to bleeding). Related Data Home Medications ?Medication ?Instructions ?Recorded ?Confirmed amitriptyline 25 mg tablet 25 mg PO DAILY 02/11/25 02/11/25 escitalopram oxalate 10 mg tablet 10 mg PO DAILY 02/11/25 02/11/25 Previous Rx's ?Medication ?Instructions ?Recorded albuterol sulfate 90 mcg/actuation 2 puff inhalation QID PRN 03/21/23 aerosol inhaler shortness of breath or wheezing #6.7 grams doxycycline hyclate 100 mg capsule 100 mg PO BID #14 caps 03/21/23 ondansetron 4 mg disintegrating 4 mg PO Q8H PRN nausea and 02/11/25 tablet vomiting #14 tabs tranexamic acid 650 mg tablet 1,300 mg (2 x 650 mg) PO TID 5 02/11/25 days #30 tabs oxycodone-acetaminophen 5 mg-325 1 tab PO BID PRN pain #14 tabs 03/27/25 mg tablet (Percocet) tranexamic acid 650 mg tablet 650 mg PO BID 6 days #12 tabs 03/27/25 Allergies Allergy/AdvReac Type Severity Reaction Status Date / Time cefixime (From Suprax) Allergy ALGY-Hives Verified 03/27/25 18:42 PFSH ED PFSH: Medical History (Updated 03/27/25 @ 21:26 by Brandon Loo MD) No pertinent past medical history neghx:htn,dm,thyroid,dvt/pe PCP: Family History Unknown Cancer Great great grandmother, breast cancer x3 maternal aunts, breast cancer maternal grandmother, ovarian cancer maternal aunt, ovarian cancer maternal grandmother, uterine cancer maternal grandmother, bladder cancer maternal grandmother, diabetes x2 maternal uncles, diabetes maternal grandmother, HTN and stroke Maternal uncle, HTN and Heart disease Other COPD (chronic obstructive pulmonary disease) Dementia Diabetes Social History Smoking and tobacco/nicotine status: unknown if used tobacco/nicotine Substance/Drug Use: never Do you think of yourself as: Straight/Heterosexual Physical Exam Const: COMMON NORMALS: no acute distress, patient oriented x3 and alert HENMT: COMMON NORMALS: normocephalic and atraumatic HEAD & SCALP: normocephalic and atraumatic Eye: COMMON NORMALS: Equal, round and reactive pupils present, EOMs intact bilaterally and no scleral icterus PUPIL: Yes Equal, round and reactive pupils present Resp: COMMON NORMALS: normal respiratory effort and No retractions Cardio: COMMON NORMALS: regular rate, regular rhythm and No murmurs present (Cardio) RATE: regular rate RHYTHM: regular rhythm GI: OTHER: Mild suprapubic tenderness, greater on the left; left adnexal region tenderness. Otherwise normal per examiner. Neuro: COMMON NORMALS: patient oriented x3 SENSORIUM/ORIENTATION: Yes alert Skin: COMMON NORMALS: no rashes or lesions noted GENERAL SKIN EXAM: no rashes or lesions noted Course Vital Signs: Vital signs: Vital Signs Temperature 98.3 F 03/27/25 18:37 Pulse Rate 86 03/27/25 21:39 Respiratory Rate 16 03/27/25 21:33 Blood Pressure 131/56 03/27/25 21:39 Pulse Oximetry 95 03/27/25 21:39 Oxygen Delivery Me thod Room Air 03/27/25 20:11 MDM - Female Medical Decision Making 35-year-old female with chronic heavy vaginal bleeding presents with 10 days of very heavy bleeding and severe cramping, passing large clots. Prior IUD expelled, multiple hormonal trials, prior tranexamic acid (TXA), hysteroscopy, and recent ultrasound showing thickened endometrium and retroverted uterus. Lightheadedness reported; dysuria with left-sided discomfort. Pertinent Vital Signs Not Available Physical exam: mild suprapubic tenderness to palpation, left greater than right, with left adnexal tenderness. Tachycardia noted clinically. Hemoglobin is stable. Pain is much better with a single dose of IV morphine. I spoke with on-call ALTERATION WORKROOM SUPERVISOR who agrees patient will likely end up getting a hysterectomy given her long history of dysfunctional uterine bleeding. ALTERATION WORKROOM SUPERVISOR recommended giving her a 5-day course of tranexamic acid which she will be given and close follow-up to ALTERATION WORKROOM SUPERVISOR clinic. Patient is agreeable to the plan Lab Data 03/27/25 19:52 03/27/25 19:52 Laboratory Results WBC 8.40 10^3/uL (3.29-11.43) 03/27/25 19:52 RBC 4.23 10^6/uL (3.85-5.65) 03/27/25 19:52 Hgb 12.90 g/dL (11.27-16.99) 03/27/25 19:52 Hct 38.1 % (36-47) 03/27/25 19:52 MCV 90.1 fl (85-98) 03/27/25 19:52 MCH 30.5 pg (27-33) 03/27/25 19:52 MCHC 33.9 g/dL (30-55) 03/27/25 19:52 RDW 13.2 % (12.1-15.1) 03/27/25 19:52 Plt Count 419 10^3/cmm (157-399) H 03/27/25 19:52 MPV 9.1 fL (7.4-10.4) 03/27/25 19:52 Neut % (Auto) 63.6 % 03/27/25 19:52 Lymph % (Auto) 28.0 % 03/27/25 19:52 Boyd % (Auto) 5.2 % 03/27/25 19:52 Eos % (Auto) 1.5 % 03/27/25 19:52 Baso % (Auto) 1.3 % 03/27/25 19:52 Neut # (Auto) 5.34 10^3/uL (1.8-7.7) 03/27/25 19:52 Lymph # (Auto) 2.4 10^3/uL (0.8-4.8) 03/27/25 19:52 Boyd # (Auto) 0.4 10^3/uL (0.2-0.9) 03/27/25 19:52 Eos # (Auto) 0.1 10^3/uL (0.0-0.8) 03/27/25 19:52 Baso # (Auto) 0.1 10^3/uL (0.0-0.1) 03/27/25 19:52 Nucleated RBC % (auto) 0 % 03/27/25 19:52 Nucleated RBCs # 0.0 /100WBC 03/27/25 19:52 Sodium 137 mmol/L (136-145) 03/27/25 19:52 Potassium 3.3 mmol/L (3.5-5.1) L 03/27/25 19:52 Chloride 104 mmol/L (98-107) 03/27/25 19:52 Carbon Dioxide 22 mmol/L (22-29) 03/27/25 19:52 Anion Gap 14.3 (5-19) 03/27/25 19:52 BUN 14 mg/dL (6-20) 03/27/25 19:52 Creatinine 0.5 mg/dL (0.5-0.9) 03/27/25 19:52 GFR Calculation 142.1 mL/min (90-130) H 03/27/25 19:52 Glucose 85 mg/dL (65-115) 03/27/25 19:52 Calculated Osmolality 284 mOsm/kg (285-295) L 03/27/25 19:52 Calcium 9.3 mg/dL (8.5-10.5) 03/27/25 19:52 Total Bilirubin 0.2 mg/dL (0.15-1.2) 03/27/25 19:52 AST 13 U/L (0-32) 03/27/25 19:52 ALT 10 U/L (0-33) 03/27/25 19:52 Alkaline Phosphatase 52 U/L (35-105) 03/27/25 19:52 Total Protein 7.3 g/dL (6.6-8.7) 03/27/25 19:52 Albumin 4.2 g/dL (3.5-5.2) 03/27/25 19:52 Globulin 3.1 g/dL (1.3-4.6) 03/27/25 19:52 HCG, Qual Negative (Negative) 03/27/25 19:36 Urine Color Red (Yellow) A 03/27/25 19:36 Urine Appearance Turbid (CLEAR) A 03/27/25 19:36 Urine pH 6.5 (5-7) 03/27/25 19:36 Ur Specific [place] 1.013 (1.005-1.030) 03/27/25 19:36 Urine Protein 2+ (Negative) A 03/27/25 19:36 Urine Glucose (UA) Negative (Normal) 03/27/25 19:36 Urine Ketones Negative (Negative) 03/27/25 19:36 Urine Blood 3+ (Negative) A 03/27/25 19:36 Urine Nitrate Negative (Negative) 03/27/25 19:36 Urine Bilirubin Negative (Negative) 03/27/25 19:36 Urine Urobilinogen 0.2 mg/dL (Negative) 03/27/25 19:36 Ur Leukocyte Esterase 3+ (Negative) A 03/27/25 19:36 Urine RBC >100 /hpf (0-2) H 03/27/25 19:36 Urine WBC >100 /hpf (0-5) H 03/27/25 19:36 Ur Squamous Epith Cells 21-50 /hpf (0-5) H 03/27/25 19:36 Amorphous Sediment Not Reportable 03/27/25 19:36 Urine Bacteria Trace /hpf (NONE) 03/27/25 19:36 Hyaline Casts 1.33 /lpf 03/27/25 19:36 No radiology studies performed this visit Discharge Plan Discharge Patient Disposition: Home Clinical Impression: Dysfunctional uterine bleeding Condition: Stable Prescriptions: New oxycodone-acetaminophen [Percocet] 5-325 mg tablet 1 tab PO BID PRN (Reason: pain) Qty: 14 0RF tranexamic acid 650 mg tablet 650 mg PO BID 6 Days Qty: 12 0RF No Action doxycycline hyclate 100 mg capsule 100 mg PO BID Qty: 14 0RF albuterol sulfate 90 mcg/actuation HFA aerosol inhaler 2 puff inhalation QID PRN (Reason: shortness of breath or wheezing) Qty: 6.7 0RF amitriptyline 25 mg tablet 25 mg PO DAILY escitalopram oxalate 10 mg tablet 10 mg PO DAILY tranexamic acid 650 mg tablet 1,300 mg PO TID 5 Days Qty: 30 2RF Rx Instructions: start day before expected period and take three times daily for 5 days ondansetron 4 mg tablet,disintegrating 4 mg PO Q8H PRN (Reason: nausea and vomiting) Qty: 14 1RF Rx Instructions: take one tab every 8 hours as needed Discharge Orders: Discharge ED (Routine); Ordered 03/27/25 Ordered By: Brandon Loo Referrals: Haydee Fernández FNP [Primary Care Provider, Unknown] Jorge Morrison MD [Physician, ALTERATION WORKROOM SUPERVISOR] Referral Note: considering hysterectomy Discharge Diet: Usual diet Discharge Activity: Increase activity as tolerated Patient Instructions: Abnormal (Dysfunctional) Uterine Bleeding (ED), Patient Portal & Blaze Instructions Print Language: Indonesian Coding Level of Care Code ED Plant Electrical Engineer for Jhoan Palmer
== END 2025-03-27 21:29 | disposition home or self-care (01) ==
PROVIDERS: Emergency Provider Student in an Organized Health Care Education/Training Program; PCP Nurse Practitioner Family
DX: N93.8 Other specified abnormal uterine and vaginal bleeding (principal)
CPT/HCPCS: 80053; 81001; 81025; 85025; 87086; 96374; 96375; 99284; J2270; J2405; J9999

== ENCOUNTER → 2025-05-25 13:24 | Outpatient (BNVA) | payer BC, MEDICAID, SELFPAY | PROVIDERS: PCP Nurse Practitioner Family; Visit Provider Obstetrics & Gynecology | DX: N93.9 Abnormal uterine and vaginal bleeding, unspecified (principal) | CPT/HCPCS: 81025; 88305 ==

== ENCOUNTER → 2025-06-02 10:31 | Outpatient (BNVA) | payer BC, MEDICAID, SELFPAY | PROVIDERS: PCP Nurse Practitioner Family; Visit Provider Family Medicine | DX: Z01.818 Encounter for other preprocedural examination (principal); F17.210 Nicotine dependence, cigarettes, uncomplicated; E87.6 Hypokalemia; N92.1 Excessive and frequent menstruation with irregular cycle | CPT/HCPCS: 80053; 85025 ==

== ENCOUNTER 2025-06-23 15:52 | Observation (INO) | payer BC, MEDICAID, SELFPAY ==
[2025-06-23] VITALS (25 sets, daily range): BP systolic 95–126; BP diastolic 52–83; PULSE 82–118; RESP 16–20; TEMP 36.6–37.2; O2SAT 93–99; BMI 25.0
--- NOTE | 2025-06-23 05:06 | W.PM.OPSFHP ---
Same Day Surgery H&P Indication for Procedure/HPI DATE OF PROCEDURE: June 23, 2025 CHIEF COMPLAINT/INDICATIONFOR SURGICAL PROCEDURE: chronic menometrorrhagia PREOP DIAGNOSIS: chronic menometrorrhagia PLANNED PROCEDURE: Operation Date: 06/23/25 12:00 Proposed Procedures p Laparoscopic Assist Vaginal Hysterectomy 91437 N93.9 N92.1(Not Applicable) - Jorge Morrison MD Medications/Allergies* Home Medications ?Medication ?Instructions ?Recorded ?Confirmed ?Type amitriptyline 25 mg tablet 25 mg PO DAILY 02/11/25 06/22/25 History escitalopram oxalate 10 mg tablet 10 mg PO DAILY 02/11/25 06/22/25 History Allergies/Adverse Reactions Allergy/AdvReac Type Severity Reaction Status Date / Time cefixime (From Suprax) Allergy ALGY-Hives Verified 06/22/25 10:46 Pertinent History/Comorbid Conditions* Medical History (Updated 04/04/25 @ 00:00 by MARKY Puckett) No pertinent past medical history neghx:htn,dm,thyroid,dvt/pe PCP: Family History (Updated 10/12/22 @ 08:24 by Evangelina Sharma LPN) Diabetes Dementia COPD (chronic obstructive pulmonary disease) Cancer Unknown Great great grandmother, breast cancer x3 maternal aunts, breast cancer maternal grandmother, ovarian cancer maternal aunt, ovarian cancer maternal grandmother, uterine cancer maternal grandmother, bladder cancer maternal grandmother, diabetes x2 maternal uncles, diabetes maternal grandmother, HTN and stroke Maternal uncle, HTN and Heart disease Social History Smoking and tobacco/nicotine status: current every day tobacco/nicotine user cigarettes Substance/Drug Use: never Do you think of yourself as: Straight/Heterosexual Pertinent Exam Findings alert, oriented x 3, clear to auscultation bilaterally and regular rate & rhythm Recommendations Surgery/Procedure today Coding Level of Care Code Acute Code for Chg Fwd
--- NOTE | 2025-06-23 11:41 | ANES.PREANE2 ---
Pre-Anesthetic Assessment Height/Weight: Height 5 ft Temp Pulse Resp BP Pulse Ox O2 Del Method 97.9 F 101 H 16 126/83 98 Room Air 06/23/25 11:27 06/23/25 11:27 06/23/25 11:27 06/23/25 11:27 06/23/25 11:27 06/23/25 11:27 Preop Diagnosis: chronic menometrorrhagia Operation Date: 06/23/25 12:00 Proposed Procedures p Laparoscopic Assist Vaginal Hysterectomy 99868 N93.9 N92.1(Not Applicable) - Jorge Morrison MD Was Beta Latoya taken within 24 hours: N/A Was Clonidine taken within 24 hours: N/A Social Tobacco Half pack per day pack(s) per day Exam alert, oriented x 3, clear to auscultation bilaterally and regular rate & rhythm Airway Submandibular: within normal limits Cervical ROM: within normal limits Mallampati: Class I Dentition: full Anesthetic Plan ASA status: 2 Anesthesia: General Other: No prior issues with anesthesia NPO since yesterday evening Denies any cardiac issues Smokes nicotine Chronic cough that she states she has had for 2 months now. Denies any fevers Labs reviewed from 06/02/2025 and acceptable for procedure METs greater than 4 Plan for GETA Medications/Allergies Home Medications ?Medication ?Instructions ?Recorded ?Confirmed ?Last Taken ?Type albuterol sulfate 90 mcg/actuation 2 puff inhalation QID PRN 03/21/23 06/22/25 Unknown Rx aerosol inhaler shortness of breath or wheezing #6.7 grams amitriptyline 25 mg tablet 25 mg PO DAILY 02/11/25 06/22/25 06/22/25 History escitalopram oxalate 10 mg tablet 10 mg PO DAILY 02/11/25 06/22/25 06/23/25 08:30 History ondansetron 4 mg disintegrating 4 mg PO Q8H PRN nausea and 02/11/25 06/22/25 Unknown Rx tablet vomiting #14 tabs tramadol 50 mg tablet 50 mg PO BID PRN pain #30 tabs 06/15/25 06/22/25 Unknown Rx Allergies Allergy/AdvReac Type Severity Reaction Status Date / Time cefixime (From Suprax) Allergy ALGY-Hives Verified 06/23/25 11:25 Current Medications Generic Name Dose Route Start Last Admin Trade Name Freq PRN Reason Stop Dose Admin Sodium Chloride 1,000 mls @ 30 mls/hr 06/23/25 11:00 06/23/25 10:58 Sodium Chloride 0.9% IV 06/24/25 10:59 30 mls/hr .Q24H TIFFANIE Administration PFSH Anesthesia Medical History No pertinent past medical history neghx:htn,dm,thyroid,dvt/pe PCP: Family History Unknown Cancer Great great grandmother, breast cancer x3 maternal aunts, breast cancer maternal grandmother, ovarian cancer maternal aunt, ovarian cancer maternal grandmother, uterine cancer maternal grandmother, bladder cancer maternal grandmother, diabetes x2 maternal uncles, diabetes maternal grandmother, HTN and stroke Maternal uncle, HTN and Heart disease Other COPD (chronic obstructive pulmonary disease) Dementia Diabetes Social History Smoking and tobacco/nicotine status: current every day tobacco/nicotine user cigarettes Substance/Drug Use: never Do you think of yourself as: Straight/Heterosexual
--- NOTE | 2025-06-23 12:24 | W.PM.OPSUD ---
Surgery/Procedure H&P Update DATE OF PROCEDURE: June 23, 2025 DATE H&P PERFORMED: 06/23/25 H&P UPDATE INFORMATION: I have reviewed H&P completed within last 30 days, I have examined patient prior to procedure and No changes to prior documentation PREOP DIAGNOSIS: chronic menometrorrhagia PLANNED PROCEDURE: Operation Date: 06/23/25 12:00 Proposed Procedures p Laparoscopic Assist Vaginal Hysterectomy 75000 N93.9 N92.1(Not Applicable) - Jorge Morrison MD
[2025-06-23 12:27] LABS: OR HCG Qualitative Urine Negative (Negative)
[2025-06-23] MEDS: metroNIDAZOLE IV 500 MG/100 ML PREMIX 100 MG IV (13:05)
--- NOTE | 2025-06-23 15:13 | SUR.OPER ---
5909 UPDATED SPOUSE VIA CELL PHONE
--- NOTE | 2025-06-23 15:45 | PM.OP2 ---
Brief Operative Note Date of procedure: 06/23/25 Pre-op diagnosis: menometrorrhagia Post-op diagnosis: same Procedure Done: total laparoscopic hysterectomy Surgeon: Jorge Morrison Estimated blood loss (mL): 150 Complications: none Post-op Plan: floor
--- NOTE | 2025-06-23 16:10 | PM.OP ---
Operative Report Date of procedure: June 23, 2025 Pre-op diagnosis: chronic severe menometrorrhagia Post-op diagnosis: same Post-op findings: Adhesions between omentum and anterior abdominal wall normal uterus normal tubes and ovaries otherwise normal pelvis Procedure done: total laparoscopic hysterectomy Implants: none Specimens removed/disposition: uterus Surgeon: Jorge Morrison MD Communication Instructor: Alan Gracia MD Anesthesia: General Estimated blood loss (mL): 150 Complications: none Findings: see above Condition: stable Disposition: PACU Brief History: 35 y.o. with chronic severe menometrorrhagia Procedure: The patient was taken to the operating room, placed supine on the table. General endotracheal anesthesia was induced. A time-out was performed. Two grams of Ancef and 500 mg of Flagyl IV were given. The patient was placed in dorsolithotomy position for laparoscopic surgery. The abdomen and perineum were prepped and draped in the usual sterile fashion. A Peri uterine manipulator was placed via the cervix for manipulation of the uterus. A bravo catheter was placed which drained clear urine. An umbilical skin incision was made measuring approximately 5 mm. A Veress needle was inserted. After confirming intraperitoneal entry, a pneumoperitoneum was achieved. The Veress needle was removed. A trocar with sheath was placed. A laparoscope was inserted and used to visualize the pelvic organs. Noted were omental adhesions to the abdominal wall. These were carefully lysed using a grasper and Ligasure device. There were no other adhesions noted. There were no evident endometriotic implants. Normal uterus, tubes, and ovaries were seen. The remainder of the pelvis was normal. Two additional skin incisions were made measuring 0.5 cm each in the suprapubic and left lower quadrant. 5 mm trocars with sheaths were inserted via these incisions under laparoscopic visualization. A Ligasure device and endograsper were placed. The Ligasure device was used to divide the round ligaments on both sides followed by the uteroovarian ligaments. These were successfully coagulated and divided without any bleeding. The utero-ovarian vessels were identified, sealed and divided and carried through to the round ligaments. The Ligasure device was then used to divide the uterine vessels perpendicular to the ascending branch, at the level of the internal cervical os. Cephalad traction was maintained during this part of the procedure to reduce possible injury to bilateral ureters. The colpotomizer ring was used to identify the cervico-vaginal junction which was entered using the monopolar hook. Circumferential colpotomy was performed using hook monopolar device. The specimen was removed from the vagina without difficulty. The vaginal cuff was closed using O-Vicyl suture ligature, placed vaginally. Inspection of the pelvis using the laparoscope showed good hemostasis and intact bladder. Following this, all instruments were removed from the abdomen after the pneumoperitoneum was allowed to escape. The laparoscopic skin incisions were then closed using 4-O monocryl sutures. The patient was placed supine and taken to the recovery room. Postoperative condition stable EBL: 150 cc Complications: none To PACU in good condition
[2025-06-23] MEDS: ondansetron 2 mg/ML SDV 2 mL 4 MG IVP ×2 (16:14→16:23)
[2025-06-23] MEDS: fentaNYL 50 mcg/mL INJ 2mL IVP ×2 (16:27→16:37)
[2025-06-23] MEDS: HYDROmorphone 1 mg/mL INJ 1ml 0.5 MG IVP (16:47)
--- NOTE | 2025-06-23 17:01 | ANE.PACU2 ---
Inpatient post-anesthesia follow up: Airway intact: Yes Vital signs: Temperature 98.9 F Pulse Rate 114 Respiratory Rate 17 Blood Pressure 104/52 Pulse Oximetry 93 Oxygen Delivery Me thod Room Air Oxygen Flow Rate 6 Fraction of Inspir ed Oxygen Hydration adequate: Yes Nausea and vomiting: Yes Pain level: 3 Mental status: Baseline
[2025-06-23] MEDS: HYDROcodone-acetaminophen 5-325 mg Tablet PO (17:28)
[2025-06-23] MEDS: fentaNYL 50 mcg/mL INJ 2mL 100 MCG (19:05)
[2025-06-23] MEDS: fentaNYL 50 mcg/mL INJ 2mL 100 MCG IVP ×2 (20:39→21:56)
[2025-06-24] MEDS: HYDROcodone-acetaminophen 5-325 mg Tablet PO ×2 (00:59→06:57)
[2025-06-24 02:30] VITALS: BP 98/65; PULSE 88; RESP 16; O2SAT 97
[2025-06-24 03:18] VITALS: RESP 18; O2SAT 95
[2025-06-24] MEDS: fentaNYL 50 mcg/mL INJ 2mL 100 MCG IVP (03:18)
[2025-06-24 03:19] VITALS: BP 108/67; PULSE 111; RESP 18; O2SAT 97
[2025-06-24 04:58] VITALS: BP 98/63; PULSE 88; RESP 16; TEMP 36.7; O2SAT 99
[2025-06-24 05:14] LABS: Hematocrit 35.7 % (36-47); Hemoglobin 11.80 g/dL (11.27-16.99); Mean Corpuscular HGB Conc 33.1 g/dL (30-55); Mean Corpuscular Hemoglobin 30.6 pg (27-33); Mean Corpuscular Volume 92.5 fl (85-98); Platelet Count 270 10^3/cmm (157-399); Red Blood Count 3.86 10^6/uL (3.85-5.65); White Blood Count 8.81 10^3/uL (3.29-11.43)
[2025-06-24] MEDS: ondansetron 2 mg/ML SDV 2 mL 4 MG IVP (06:18)
[2025-06-24 10:00] VITALS: BP 106/69; PULSE 88; RESP 16; TEMP 36.6; O2SAT 100
--- NOTE | 2025-06-24 14:10 | PM.OBGYPN ---
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 Subjective Subjective: Interval history: c/o mild abdominal pain, relieved with pain medications eating, voiding, ambulating well no bleeding / discharge Vitals/I&O/Wt Last Vital Signs Temp 97.8 F 06/24/25 10:00 Pulse 88 06/24/25 10:00 Resp 16 06/24/25 10:00 BP 106/69 06/24/25 10:00 Pulse Ox 100 06/24/25 10:00 O2 Del Method Room Air 06/24/25 10:00 O2 Flow Rate 6 06/23/25 16:06 Physical Exam Narrative: Comfortable, in no distress Awake, alert Afebrile, VS normal Lungs: clear Cor: RRR Abd: soft, nondistended, nontender Laparoscopic incisions clean and dry Ext: normal Urinary Catheter Management: Al: Cath Placed During This Visit: yes, but has since been removed by the nurse Reason for Continuing Indwelling Catheter: Decision to DC Catheter Urinary Catheter Date of Insertion: 06/23/25 Urinary Catheter Time of Insertion: 13:25 Date Urinary Catheter Removed: 06/24/25 Time Urinary Catheter Discontinued: 06:00 Data 06/24/25 04:45 A&P Assessment and plan 1. Hx of total hysterectomy: s/p total laparoscopic hysterectomy POD #1 Doing well Plan discharge to home Call / return if fever, chills, abdominal pain, bleeding f/u in one week PDMP PDMP Reviewed: Last Reviewed 06/24/25 10:18 EST by Jorge Morrison MD Attestations Medical Necessity Statement*: patient s/p hysterectomy, plan to discharge to home today Coding Level of Care Code Acute Code for Chg Fwd Diagnoses Hx of total hysterectomy Z90.710
--- NOTE | 2025-06-24 14:25 | P.DS_ITS ---
Discharge Providers [employer]CH[employer]ISER Date of Admission: 06/23/25 15:52 Date of Discharge: 06/24/25 Attending Provider at Admission: Jorge Morrison MD Attending Provider at Discharge: Jorge Morrison MD Consults: none Primary RETAIL [employer] MERCHANDISER: Jorge Morrison MD Primary Care Provider: DARIUS Barkley Diagnoses at Discharge Discharge Diagnosis 1. Hx of total hysterectomy: Details from hospital stay: 35 y.o. history of abnormal heavy and prolonged periods and chronic pelvic pain admitted for hysterectomy total laparoscopic hysterectomy was performed without any complications patient did well postoperatively and was discharged to home on the first postoperative day Reason for Visit Reason for Visit: N93.9 Brief History: 35 y.o. history of abnormal heavy and prolonged periods and chronic pelvic pain admitted for hysterectomy Hospital Course Hospital Course 35 y.o. history of abnormal heavy and prolonged periods and chronic pelvic pain admitted for hysterectomy total laparoscopic hysterectomy was performed without any complications patient did well postoperatively and was discharged to home on the first postoperative day Physical Exam Narrative: Comfortable, in no distress Awake, alert Afebrile, VS normal Lungs: clear Cor: RRR Abd: soft, nondistended, nontender Laparoscopic incisions clean and dry Ext: normal Urinary Catheter Management: Al: Cath Placed During This Visit: yes, but has since been removed by the nurse Reason for Continuing Indwelling Catheter: Decision to DC Catheter Urinary Catheter Date of Insertion: 06/23/25 Urinary Catheter Time of Insertion: 13:25 Date Urinary Catheter Removed: 06/24/25 Time Urinary Catheter Discontinued: 06:00 History History History 2 Term 0 2 Miscarriages/Ectopic 0 Living Children 2 Discharge Data Studies Completed and Pending Completed Studies During Hospitalization Category Date Time Status Pathology: Surgical [PTH] Routine Pth 06/23/25 15:36 Completed Laboratory Results WBC 8.81 10^3/uL (3.29-11.43) 06/24/25 04:45 RBC 3.86 10^6/uL (3.85-5.65) 06/24/25 04:45 Hgb 11.80 g/dL (11.27-16.99) 06/24/25 04:45 Hct 35.7 % (36-47) L 06/24/25 04:45 MCV 92.5 fl (85-98) 06/24/25 04:45 MCH 30.6 pg (27-33) 06/24/25 04:45 MCHC 33.1 g/dL (30-55) 06/24/25 04:45 RDW 12.8 % (12.1-15.1) 06/24/25 04:45 Plt Count 270 10^3/cmm (157-399) 06/24/25 04:45 MPV 9.6 fL (7.4-10.4) 06/24/25 04:45 Urine HCG, Qual Negative (Negative) 06/23/25 10:49 Blood Type O Positive 06/23/25 12:20 Rho(D) Type Rh positive 06/23/25 12:20 Antibody Screen Negative 06/23/25 12:20 Procedures Performed total laparoscopic hysterectomy Vitals Last Vital Signs Temp 97.8 F 06/24/25 10:00 Pulse 88 06/24/25 10:00 Resp 16 06/24/25 10:00 BP 106/69 06/24/25 10:00 Pulse Ox 100 06/24/25 10:00 O2 Del Method Room Air 06/24/25 10:00 O2 Flow Rate 6 06/23/25 16:06 Results Labs OB ([facility]): Blood Type O Positive 06/23/25 Antibody Screen Negative 06/23/25 Hct, (36-47) 37.1 % 06/26/25 Hgb, (11.27-16.99) 12.40 g/dL 06/26/25 Rho(D) Type Rh positive 06/23/25 Plt Count, (157-399) 234 10^3/cmm 06/26/25 HCG, Qual, (Negative) Negative 05/25/25 Micro Urine Specimen 03/27/25 Discharge Plan Discharge Patient Disposition: Home Condition: Stable Prescriptions: New oxycodone-acetaminophen [Percocet] 5-325 mg tablet 1 tab PO Q8H PRN (Reason: pain) Qty: 30 0RF Continued albuterol sulfate 90 mcg/actuation HFA aerosol inhaler 2 puff inhalation QID PRN (Reason: shortness of breath or wheezing) Qty: 6.7 0RF amitriptyline 25 mg tablet 25 mg PO DAILY escitalopram oxalate 10 mg tablet 10 mg PO DAILY ondansetron 4 mg tablet,disintegrating 4 mg PO Q8H PRN (Reason: nausea and vomiting) Qty: 14 1RF Rx Instructions: take one tab every 8 hours as needed tramadol 50 mg tablet 50 mg PO BID PRN (Reason: pain) Qty: 30 0RF Discharge Order = DC NOW: Discharge Order (Routine); Ordered 06/24/25 Ordered By: Jorge Morrison Referrals: Jorge Morrison MD [Physician, [employer]] - 07/08/25 12:45 pm Discharge Diet: Usual diet Discharge Activity: Increase activity as tolerated Patient Instructions: Acute Wound Care (DC), Laparoscopic Hysterectomy (GEN), OB Laproscopic Surgery - [facility], OB Food/Drug Interaction Guide, Opioid Safety, Post Anesthesia Care, Patient Portal & Blaze Instructions Discharge Attestations [employer] MERCHANDISER Time Spent in Discharge Care*: less than 30 min Coding Level of Care Code Acute Code for Chg Fwd Diagnoses Hx of total hysterectomy Z90.710
== END 2025-06-24 10:34 | disposition home or self-care (01) ==
LOC: OBGYN 15:52
PROVIDERS: Admitting Provider Obstetrics & Gynecology; PCP Nurse Practitioner Family; Visit Provider Obstetrics & Gynecology
PROC: 0UT9FZZ Resection of Uterus, Via Natural or Artificial Opening With Percutaneous Endoscopic Assistance (ICD-10-PCS; CPT 58550; principal; 2025-06-23 11:50)
DX: N92.1 Excessive and frequent menstruation with irregular cycle (principal); K66.0 Peritoneal adhesions (postprocedural) (postinfection); F17.210 Nicotine dependence, cigarettes, uncomplicated; N88.8 Other specified noninflammatory disorders of cervix uteri; N80.03 Adenomyosis of the uterus
CPT/HCPCS: 58550; 36415; 81025; 85027; 86850; 86900; 88307; A4216; G0378; J1100; J1171; J1200; J1885; J2250; J2405; J2704; J3010; J3475; J3490; J7030; J9999

== ENCOUNTER 2025-06-26 15:49 | Emergency (ER) | payer BC, MEDICAID, SELFPAY ==
--- OUTSIDE RECORDS SUMMARY | 2025-01-12 07:00 | XMS_ITS ---
Author Organization [facility] Address [address] [place] [address] Care Team Providers Care Hedge Fund Manager Name Role Phone Mau Ricardo Unavailable [phone] REASON FOR VISIT eval. chiari Malformation Encounters Encounter Location Date Provider Diagnosis [facility] [address] [place] [address] 01/12/2025 Mau Ricardo Plan Of Treatment No Information Progress Notes * CLAREELKE POSADASPERNELLCEDOB: 2 (35 yo F)Acc No.[id number]:01/12/2025 Progress Notes Patient: TYREE OG Provider: Homer Ricardo APRN :1990 A ge:34 Y S ex:Female Date:01/12/2025 Address:[address] [place], [place] [id number] Subjective: * Chief Complaints: * e sergio. chiari Malformation Billing Information: * Procedure Codes: * Electronic signature of Will DARIUS Campos on 06/26/2025 at 03:55 PM TECHNICIAN TERMINAL AND REPEATER Sign off status: Pending * Provider: Homer Ricardo APRN Date: 0 01/12/2025 Generated for Jay villarreal/Mckenzie/eTransmitting on: 1 08/27/2024 03:55 PM TECHNICIAN TERMINAL AND REPEATER
[2025-06-26 15:51] VITALS: BP 116/80; PULSE 105; RESP 18; TEMP 36.8; O2SAT 98
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
--- OUTSIDE RECORDS SUMMARY | 2025-06-26 15:55 | XMS_ITS | Data Portability ---
Author Organization [facility], Former[facility] Address [address] [place] [address] Care Team Providers Care Graduate Teacher Education Name Role Phone FEDERICO GARCIA Surveillance Director Unavailable Assessment Encounter Date Assessment Date Assessment LastModified by Organization Details LastModified Time 04/23/2017 04/23/2017 depression smokes (pt also has dx of crohn's disese) Goals (Patient's Steps): pt will read information sent by the [facility] nurse pt will recognize the risks associated with smoking pt will learn techinques to help decrease stress pt will be compliant with meds and appointments pt will learn to read food labels pt will understand the disease process of crohns Interventions (Nurse's Steps): nurse to provide information on the risks of tobacco use nurse to provide support and encouragement nurse to provide information on the risks of tobacco use nurse to provide support and encouragement nurse to provide information on how to read food labels nurse to provide information on daily exercise Target Date:ongoing until the pt is smoke free and goals are met. 04-23-17 pt has not had a recent office visit. pt is overdue for adult annual preventive visit. sent pt a letter to remind her to make an appointment. sent pt case to Dr. Cosme to remind him that pt has not been to the clinic in several months, but per cyber, pt is still having meds filled by dr. Cosme. also sent information sheet on self breast exam teodoro hastings 04-04-17 encouraged pt to make an appointment for follow up . she says her crohn's has been acting up and she is almost out of Advair. demographics updated. teodoro hastings 02-09-17 cyber check done. teodoro hastings 02-02-17 sent information fight the fire of Crohn's Disease: Quit Smoking 01-02-17 sent information sheet on risks of tobacco and Nicotine and tobacco teodoro hastings 11-20-16 cyber check teodoro hastings 10-26-16 sent Don't take a vacation from your healthy habits this summer and Get moving teodoro hastings 08-09-16 pt recently suffered shoulder injury, sent information on shoulder exercises and shoulder pain . teodoro hastings Not available 04/23/2017 10:54:00 05/16/2017 05/16/2017 cyber alerts A: Antidepressant Med: Compliance w/ treatment B: Tablet splitting opportunity: SSRIs C: Antiemetic: Inappropriate use of 5-HT-3 Receptor antagonist mpr% proair 92%, citalopram 54%, advair 59% depression smokes (pt also has dx of crohn's disese) Goals (Patient's Steps): pt will read information sent by the [facility] nurse pt will recognize the risks associated with smoking pt will learn techinques to help decrease stress pt will be compliant with meds and appointments pt will learn to read food labels pt will understand the disease process of crohns Interventions (Nurse's Steps): nurse to provide information on the risks of tobacco use nurse to provide support and encouragement nurse to provide information on the risks of tobacco use nurse to provide support and encouragement nurse to provide information on how to read food labels nurse to provide information on daily exercise Target Date:ongoing until the pt is smoke free and goals are met. 05-16-17 cyber check done. pt appears to be filling proair as prescribed.other meds about 1/2 the time.teodoro hastings 04-23-17 pt has not had a recent office visit. pt is overdue for adult annual preventive visit. sent pt a letter to remind her to make an appointment. sent pt case to Dr. Cosme to remind him that pt has not been to the clinic in several months, but per cyber, pt is still having meds filled by dr. Cosme. also sent information sheet on self breast exam teodoro hastings 04-04-17 encouraged pt to make an appointment for follow up . she says her crohn's has been acting up and she is almost out of Advair. demographics updated. teodoro hastings 02-09-17 cyber check done. teodoro hastings 02-02-17 sent information fight the fire of Crohn's Disease: Quit Smoking 01-02-17 sent information sheet on risks of tobacco and Nicotine and tobacco teodoro hastings 11-20-16 cyber check teodoro hastings 10-26-16 sent Don't take a vacation from your healthy habits this summer and Get moving teodoro hastings 08-09-16 pt recently suffered shoulder injury, sent information on shoulder exercises and shoulder pain . teodoro hastings Not available 05/16/2017 10:53:42 06/26/2017 06/26/2017 depression smokes (pt also has dx of crohn's disese) Goals (Patient's Steps): pt will read information sent by the [facility] nurse pt will recognize the risks associated with smoking pt will learn techinques to help decrease stress pt will be compliant with meds and appointments pt will learn to read food labels pt will understand the disease process of crohns Interventions (Nurse's Steps): nurse to provide information on the risks of tobacco use nurse to provide support and encouragement nurse to provide information on the risks of tobacco use nurse to provide support and encouragement nurse to provide information on how to read food labels nurse to provide information on daily exercise Target Date:ongoing until the pt is smoke free and goals are met. 06-26-17 sent pt information sheet on healthy holiday eating. also sent pt case to dr. cosme to have him see the pt. teodoro loja 05-16-17 cyber check done. pt appears to be filling proair as prescribed.other meds about 1/2 the time.teodoro hastings 04-23-17 pt has not had a recent office visit. pt is overdue for adult annual preventive visit. sent pt a letter to remind her to make an appointment. sent pt case to Dr. Cosme to remind him that pt has not been to the clinic in several months, but per cyber, pt is still having meds filled by dr. Cosme. also sent information sheet on self breast exam teodoro hastings 04-04-17 encouraged pt to make an appointment for follow up . she says her crohn's has been acting up and she is almost out of Advair. demographics updated. teodoro hastings 02-09-17 cyber check done. teodoro hastings 02-02-17 sent information fight the fire of Crohn's Disease: Quit Smoking 01-02-17 sent information sheet on risks of tobacco and Nicotine and tobacco teodoro hastings 11-20-16 cyber check teodoro hastings 10-26-16 sent Don't take a vacation from your healthy habits this summer and Get moving teodoro hastings 08-09-16 pt recently suffered shoulder injury, sent information on shoulder exercises and shoulder pain . teodoro hastings Not available 06/26/2017 11:14:38 08/16/2017 08/16/2017 [facility] Discharge form submitted to Medicaid. Unable to contact. Discharge letter mailed to patient. [facility] [email or web address] Not available 08/16/2017 15:20:02 Plan of Treatment Reminders Order Date Submit Date Provider Last Modified By Organization Details Last Modified Time Details Appointments None record ed. Lab None record ed. Referral None record ed. Procedures None record ed. Surgeries None record ed. Imaging None record ed. Medication Orders None record ed. Patient TargetsNo targets recorded. Patient InstructionsNo instructions recorded. Reason for Referral None Reported. Problems Name Problem SNOMED Code Status Onset Date Resolution Date Notes Provider Name and Address Organization Details Recorded Time Asthma 956585116 Active 2014 Created By: LORNA MORALEZ ; Modified By: DOUGIE RAE; Category : DD; Examiner : Lorna Moralez; Medicine Descript ion: ASTHMA; Display in Medcin: NO; Display in ESB: NO; Confiden tiality Level: Level 1; Type: Diagnosi s Not Available [facility] 6 21:24:16 Acute sinusiti s [id number] Completed 201402/02/2017 Created By: DOUGIE HOUSTON; Modified By: DOUGIE RAE; Category : DD; Examiner : Lorna Moralez; Medicine Descript ion: SINUSITI S ACUTE; Display in Medcin: NO; Display in ESB: NO; Confiden tiality Level: Level 1; Type: Diagnosi s Federico Garcia [facility] 7 12:21:10 Cough [id number] Completed 201409/20/2016 Created By: DOUGIE HOUSTON; Modified By: DOUGIE RAE; Category : DD; Examiner : Lorna Moralez; Medicine Descript ion: cough; Display in Medcin: NO; Display in ESB: NO; Confiden tiality Level: Level 1; Type: [facility]osi s [facility] 12:22:37 Blood in urine [id number] Completed 201402/02/2017 Created By: GABRIEL LIRA; Modified By: DOUGIE RAE; Category : DD; Examiner : Lorna Moralez; Medicine Descript ion: blood in urine; Display in Medcin: NO; Display in ESB: NO; Confiden tiality Level: Level 1; Type: Diagnosi s Removal Reason: [facility] 7 12:[facility]:30 Low back pain [id number] Active 2014 Created By: LORNA MORALEZ ; Modified By: DOUGIE RAE; Category : DD; Examiner : Lorna Moralez; Medicine Descript ion: lower back pain; Display in Medcin: NO; Display in ESB: NO; Confiden tiality Level: Level 1; Type: Diagnosi s Not Available [facility] 6 21:24:17 Abdomina l pain 51529940 Active 2014 Created By: LORNA MORALEZ ; Modified By: DOUGIE RAE; Category : DD; Examiner : Lorna Moralez; Medicine Descript ion: abdomina l pain; Display in Medcin: NO; Display in ESB: NO; Confiden tiality Level: Level 1; Type: Diagnosi s Not Available [facility] 6 21:24:17 Hemorrho ids [id number] Active 2014 Created By: LORNA MORALEZ ; Modified By: DOUGIE RAE; Category : DD; Examiner : Lorna Moralez; Medicine Descript ion: HEMORRHO IDS; Display in Medcin: NO; Display in ESB: NO; Confiden tiality Level: Level 1; Type: Diagnosi s Not Available [facility] 6 21:24:21 Evaluati on procedur e Completed 201409/20/2016 Created By: AALIYAH PENA; Modified By: DOUGIE REA; Category : DD; Examiner : Aaliyah Ledezma; Medicine Descript ion: Observat ion For Suspecte d Conditio n; Display in Medcin: NO; Display in ESB: NO; Confiden tiality Level: Level 1; Type: Diagnosi s [facility] 7 12:22:43 Lymphade nopathy [id number] Completed 201402/02/2017 Created By: LORNA MORALEZ ; Modified By: DOUGIE RAE; Category : DD; Examiner : Lorna Moralez; Medicine Descript ion: Lymph Nodes Enlarged ; Display in Medcin: NO; Display in ESB: NO; Confiden tiality Level: Level 1; Type: Diagnosi s Removal Reason: [facility] 7 12:21:56 Urinary tract infectio us disease 50443626 Completed 201502/02/2017 Created By: DOUGIE RAE; Modified By: DOUGIE RAE; Category : DD; Examiner : Brandon Cosme; Medicine Descript ion: URINARY TRACT INFECTIO N; Display in Medcin: YES; Display in ESB: YES; Confiden tiality Level: Level 1; Type: Diagnosi s Removal Reason: [facility] 7 12:21:41 Complica tion due to Crohn's disease [id number] 48159 Active 2015 Created By: DOUGIE RAE; Modified By: DOUGIE RAE; Category : DD; Examiner : Brandon Cosme; Medicine Descript ion: CROHN'S DISEASE WITH COMPLICA TIONS; Display in Medcin: YES; Display in ESB: YES; Confiden tiality Level: Level 1; Type: Diagnosi s Not Available [facility] 6 21:24:16 Iron deficien cy anemia secondar y to inadequa te dietary iron intake 303096926 Active 2015 Created By: DOUGIE RAE; Modified By: DOUGIE RAE; Category : DD; Examiner : Brandon Cosme; Medicine Descript ion: IRON DEFICIEN CY ANEMIA; Display in Medcin: YES; Display in ESB: YES; Confiden tiality Level: Level 1; Type: Diagnosi s Not Available [facility] 6 21:24:17 Generali zed anxiety disorder 75423937 Active 2015 Created By: DOUGIE RAE; Modified By: DOUGIE RAE; Category : DD; Examiner : Brandon Cosme; Medicine Descript ion: OVERANXI OUS DISORDER ; Display in Medcin: YES; Display in ESB: YES; Confiden tiality Level: Level 1; Type: Diagnosi s Not Available [facility] 6 21:24:16 Single major depressi ve episode, moderate Active 2015 Created By: DOUGIE RAE; Modified By: DOUGIE RAE; Category : DD; Examiner : Brandon Cosme; Medicine Descript ion: INVOLUTI ONAL MELANCHO GUSTAVO (MDD) MODERATE ; Display in Medcin: YES; Display in ESB: YES; Confiden tiality Level: Level 1; Type: Diagnosi s Not Available [facility] 6 21:24:21 Chronic cluster headache 609763850 Active 2016 [place] [facility] 7 17:37:41 Migraine 15058783 Active 2016 [place] [facility] 7 17:37:56 Problem Notes None recorded. Procedures Surgical History Date Name Laterality Status Provider Name and Address Organization Details Recorded Time 6 Date of Last Colonoscopy completed Cindipaty العراقي [facility] 07/06/2016 10:50:39 3 Date of Last Pap Smear completed Cindi العراقي [facility] 07/06/2016 10:47:25 Imaging Results None recorded. Procedure Notes None recorded. Medical Equipment None Reported. Allergies Allergen ID Allergen Name Allergen Category Reaction Reaction Severity Criticality Documentation Date Start Date Code Code System Note Provider Name and Address Organization Details Recorded Time 31557 Suprax medicatio n hives Not available Not available 06/11/201620149 9 RxNorm React ion: Urtic aria (hive s); Comme nt: Last Edite d: 11-10 11:38 :15; Not Available [facility] 6 03:40:58 Medications Name Sig Start Date Stop Date Status Note LastModified by Organization Details LastModified Time citalopram 10 mg tablet TAKE 1 TABLET BY MOUTH EVERY DAY DIRECTED active Not Available Not Available No t Available omeprazole 40 mg capsule,del ayed release TAKE 1 CAPSULE(4 0 MG) BY MOUTH EVERY DAY BEFORE A MEAL active Not Available Not Available No t Available Imitrex 50 mg tablet 1 tab at onset of GRIER, may repeat med in 2 hrs if no relief, max 200mg per day. 2016 active Not Available Not Available Not Avai lable Advair Diskus 250 mcg-50 mcg/dose powder for inhalation INHALE 1 PUFF BY MOUTH TWICE DAILY 2016 active Not Available Not Available Not Avai lable ondansetron 4 mg disintegrat ing tablet Take 1 tablet every 6 hours by oral route as needed. 2015 active Not Available Not Available Not Avai lable ondansetron 4mg PRN 04/23 completed Not Available Not Available Not Available ProAir HFA 90 mcg/actuati on aerosol inhaler INHALE 2 PUFFS BY MOUTH 4 TIMES PER DAY NEEDED active Not Available Not Available No t Available Vitals None Recorded Social History Question Answer Notes LastModified by Organizat ion Details LastModified Time Tobacco Smoking Status Current Every Day Smoker Cnidi العراقي [facility] 07/06/2016 10:42:46 Do You Have An Advance Directive? No [email or web address] Information n ot available 07/06/2016 Are You Blind Or Do You Have Difficulty Seeing? No Information n ot available 07/06/2016 What Is Your Level Of Caffeine Consumption? Moderate Information not available 07/06/2016 How Much Tobacco Do You Chew? None [email or web address] Information not available 07/06/2016 Commercial Sex Work No [email or web address] Information not available 07/06/2016 Are You Deaf Or Do You Have Serious Difficulty Hearing? No [email or web address] Information not available 07/06/2016 What Type Of Diet Are You Following? REGULAR [email or web address] Information n ot available 07/06/2016 Which Illicit Or Recreational Drugs Have You Used? No [email or web address] Information not available 07/06/2016 Education 12 Information no t available 07/06/2016 Are There Any Guns Present In Your Home? Yes [email or web address] Information not available 07/06/2016 Hard Of Hearing Or Deaf In One Or Both Ears? No [email or web address] Information not available 07/06/2016 High Number Of Sexual Partners No [email or web address] Information not available 07/06/2016 History Of Inconsistent/no Condom Use No [email or web address] Information not available 07/06/2016 International Travel No [email or web address] Information not available 07/06/2016 Legally Blind In One Or Both Eyes? No Information no t available 07/06/2016 In The Past 6 Months Have You Fallen No [email or web address] Information not available 07/06/2016 Marital Status Single [email or web address] Informatio n not available 07/06/2016 Mother With HIV? No [email or web address] Informat ion not available 07/06/2016 Seat Belts Used Routinely Yes [email or web address] Information not available 07/06/2016 Sexual Partner Has HIV? No [email or web address] Information not available 07/06/2016 Sexual Partner Uses IV Drugs? No [email or web address] Information not available 07/06/2016 Smoke Alarm In Home Yes Information not available 07/06/2016 At What Age Did You Start Smoking Tobacco? 22 [email or web address] Information not available 07/06/2016 How Much Tobacco Do You Smoke? 0.5 PPD [email or web address] Information not available 07/06/2016 General Stress Level High [email or web address] Information not available 07/06/2016 Do You Use Sunscreen Routinely? No Information not available 07/06/2016 How Many Years Have You Smoked Tobacco? 3 [email or web address] Information not available 07/06/2016 Have You Used IV Drugs? No [email or web address] Information not available 07/06/2016 Do You Have Difficulty Walking Or Climbing Stairs? No [email or web address] Information not available 07/06/2016 Sex: Unknown Functional Status Question Answer Note LastModified by Organizat ion Details LastModified Time What is your level of alcohol consumption? None Information not available 07/06/2016 Are you able to walk independently without assistance or assistive devices? YESWOREST [email or web address] Information not available 07/06/2016 Do you have difficulty doing errands alone? 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 No [email or web address] Information not available 07/06/2016 What is your exercise level? Moderate [email or web address] Information not available 07/06/2016 Mental Status Question Answer Note LastModified by Organization D etails LastModified Time Do you have difficulty concentrating, remembering or making decisions? No [email or web address] Information no t available 07/06/2016 Family History Nothing Reported. Medical History Condition Response Other N Gout N Blood Diseases N Kidney Stones N Hyperthyroidism N Blood Transfusion N Depression N COPD N Incontinence N Edema N Endocrine Disorders N Anxiety Disorder N Muscle, Joint, or Bone Problems Y Obesity N Vision or Eye Problems N Arthritis N Auditory Hallucinations N Infertility N Cancer N Varicosities N Stroke N Headaches N Fibromyalgia N Kidney Disease N Abnormal Bleeding N Reproductive System Problems N Ear or Hearing Problems N Hospitalizations Y Learning Disorder N Eating Disorder N Skin Problems N MRSA exposure N Constipation N Urinary Problems N Brain Injury N Visual Hallucinations N Tuberculosis N AIDS/HIV N Back Problems N Asthma Y GERD/Reflux Y Hepatitis N Pulmonary Embolism N Chronic Ear Infections N Chicken Pox Y Autism Spectrum Disorder (ASD) N Thrombophilias N Thyroid Disease N Breast Cancer N Lung Disease N Hypothyroidism N Developmental or Behavioral Disorders N Defects or Inherited Disease N Breast Problem N Difficulty Swallowing N Anesthesia Complications N Deep Vein Thrombosis N Meniere's disease N Hearing Loss N Head Injury/Concussion N Congenital Anomalies N Abnormal Pap Smear N Endometriosis N Bladder or Kidney Problems N High Cholesterol N Liver Disease N Nervous System Disorder N Psychiatric/Mental Health Condition N Schizophrenia N Allergies/Hayfever N Parkinson's Disease N GI Problems Y ADD/ADHD N Anemia N Colon Polyps N Heart Attack ([place]) N Diabetes N Ovarian Cancer N Bedwetting N Seizures/Epilepsy N Amnesia N Congestive Heart Failure (CHF) N Eczema N Dementia N Diverticulitis N Abuse/Domestic Violence N Cardiovascular N Tourette Syndrome N Hypertension N Pre-Eclampsia N Osteoporosis N Gynecological History Statement/Question Response Abnormal Pap N Flow Heavy Date of LMP 06/15/2016 Post Menopausal Bleeding N STIs/STDs N HPV Vaccine N Current Control Method None Age at First Child 18 Date of Last Colonoscopy 08/10/2015 Sexually Active? Y Date of Last Pap Smear 06/18/2013 Sexual Problems? N Desired Control Method Other Hormone Replacement Therapy N Obstetrics History GPAL:G 2 P 1 1 0 2 Type Value Full Term 1 Premature 1 Living 2 Total 2 Past Encounters Encounter ID Performer Location Encounter Start Date Encounter Closed Date Diagnosis/Indication Diagnosis SNOMED-CT Code Diagnosis ICD10 Code Diagnosis IMO Codes Diagnosis Note [id number] Brandon Cosme DO [facility] [place] [address] [place] [address] 07/06/2016 10:28:40 07/06/2016 17:45:33 Shoulder joint pain 760929678 M25.512 Provided pt with signed order to have x-ray performed at hospital. MRI to follow, if needed, once x-ray report has been reviewed. Single félix or depressive episode, moderate 880910289 F32.1 Crohn's disease 65764198 K50.90 [id number] Federico Garcia RN [facility] [address] [place] [id number] 07/06/2016 11:33:46 07/06/2016 14:51:17 [id number] Federico Garcia RN [facility] [address] [place] [id number] 08/04/2016 13:45:37 08/04/2016 13:51:42 [id number] Federico Garcia RN [facility] [address] [place] [address] 0 08/09/2016 10:49:12 08/09/2016 11:50:09 [id number] Federico Garcia RN [facility] [address] [place] [id number] 0 08/29/2016 13:01:52 08/29/2016 13:35:30 [id number] Federico Garcia RN [facility] [address] [place] [id number] 0 09/20/2016 12:23:39 09/20/2016 13:50:29 [id number] Federico Garcia RN [facility] [address] [place] [id number] 0 10/26/2016 12:30:21 11/23/2016 15:16:31 [id number] Federico Garcia RN [facility] [address] [place] [id number] 0 11/20/2016 13:25:28 11/23/2016 16:41:51 [id number] Federico Garcia RN [facility] [address] [place] [address] 01/02/2017 12:19:31 01/03/2017 13:19:31 [id number] Federico Garcia RN [facility] [address] [place] [id number] 02/02/2017 12:20:55 02/02/2017 14:11:35 [id number] Federico Garcia RN [facility] [address] [place] [address] 02/09/2017 13:09:57 02/12/2017 12:49:01 [id number] Federico Garcia RN [facility] [address] [place] [address] 04/04/2017 13:52:19 04/04/2017 18:00:26 [id number] Federico Garcia RN [facility] [address] [facility] [place] [id number] 04/23/2017 10:43:57 04/23/2017 11:19:32 [id number] Federico Garcia RN [facility] [address] [facility] [place] [address] 05/16/2017 10:50:36 05/16/2017 14:11:27 [id number] Federico Garcia RN [facility] [address] [place] [address] [place] [address] 06/26/2017 10:50:55 07/04/2017 03:46:30 [id number] Melyssa Clemente [facility] [address] [place] [address] [place] [address] 08/07/2017 17:07:04 08/07/2017 17:12:46 [id number] Federico Crespo [facility] [address] [place] [address] [place] [address] 08/16/2017 15:16:57 08/18/2017 03:47:13 Health Concerns Section Related Observation LastModified by Organization Detai ls LastModified Time None Recorded Concern Status LastModified by Organization Details LastModified Time None Recorded Advance Directives Directive N: Payers Insurance Date Sequence Insurance Name Policy Number Policy Benavidez Covered Member ID Benavidez Member ID Guarantor Name 07/17/2016 1 [place] [facility] [place] [id number] [place] 04/19/2018 1 [place] [id number] Tarsha Venancio OBGyn Episode No OBEpisode recorded.
--- OUTSIDE RECORDS SUMMARY | 2025-06-26 15:55 | XMS_ITS | Data Portability ---
Author Organization [facility] Taj Ramos [facility], [facility] Address [address] [address] Care Team Providers Care Ball Winder Name Role Phone HAYDEE YEAGER Primary Care Provider Assessment Encounter Date Assessment Date Assessment LastModified by Organization Details LastModified Time 02/03/2025 02/03/2025 Patient here because she was bitten by something and she has subsequent redness, swelling and tenderness of the site. Unsure of what bit her, will start antibiotics and steroids today. Encouraged her to use a baking soda paste to help with swelling. Not available 02/13/2025 11:51:51 03/17/2025 03/17/2025 Patient here today because she is still feeling badly. She was recently diagnosed with rhinovirus and is still not feeling well. Not available 03/17/2025 15:58:12 05/14/2025 05/14/2025 She has a lot going [...] Modified Time Details Appointments None recorded. Lab respiratory pathogens DNA and RNA panel, PCR, nasopharynx 2024 025 [facility] ([facility]), [address] [place] [address], [phone], 17:27:29 Referral None recorded. Procedures None recorded. Surgeries None recorded. Imaging None recorded. Medication Orders buspirone 5 mg tablet 2024 025 [email or web address] [id number], [address], [address], [place], [address], 5 13:20:29 Zithromax Z-Oj 250 mg tablet 2024 025 [id number], [address], [place], [address], 5 13:05:56 cetirizine 10 mg tablet 2024 025 [id number], [address], [address], [place], [address], 5 18:07:57 fluticasone propionate 50 mcg/actuati on nasal spray,suspe nsion 2024 025 [id number], [address], [place], [address], 5 18:07:58 prednisone 20 mg tablet 2024 [id number], [address], [address], [place], [address], 5 05:01:57 doxycycline hyclate 100 mg capsule 2024 025 [id number], [address], [address], [place], [address], 5 05:01:22 ketorolac 30 mg/mL (1 mL) injection solution 2024 025 [email or web address] Not available 13:33:09 dexamethaso ne sodium phosphate 10 mg/mL injection solution 2024 025 [email or web address] Not available 13:33:06 Patient TargetsNo targets recorded. Patient Instructions Encounter Date Encounter Id Patient Instructions Last Modified By Organization Details Last Modified Time 02/03/2025 [id number] Call or return for questions or concerns. Not available 02/13/2025 11:51:22 03/17/2025 [id number] Call or return for questions or concerns. Not available 03/17/2025 15:51:56 05/14/2025 [id number] Call or return for questions or concerns. Not available 05/14/2025 13:30:27 Reason for Referral None Reported. Results Created Date Observation Date Name Description Value Unit Range Abnormal Flag Note LastModifiedBy Organization Detail LastModifiedTime 12/26/1912/25/2024 TSH TSH 1.22 uIU/m L 0.49-3 .82 Not Available [facility] [address] [place] [address], [address], 12/25/2024 17:36:24 12/26/19 25 12/26/2024 FSH FSH 3.8 mIU/m L normal Refer ence Range Folli cular Phase 2.5-1 0.2 Mid-c ycle Peak 3.1-1 7.7 Lutea l Phase 1.5- 9.1 Postm enopa usal 23.0- 116.3 Not Available [employer] [address] [address] [place], [address], 12/26/2024 05:51:45 12/26/19 25 12/26/2024 PROLA CTIN prolactin 6.7 NG/mL normal Refer ence Range Femal es Non-p regna nt 3.0-3 0.0 Pregn ant 10.0- 209.0 Postm enopa usal 2.0-2 0.0 Not Available [employer] [facility] [address] [place], [address], 12/26/2024 05:51:46 12/26/19 25 12/26/2024 ESTRA DIOL estradiol 136 pg/mL normal Refer ence Range Folli cular Phase : 19-14 4 Mid-C ycle: 64-35 7 Lutea l Phase : 56-21 4 Postm enopa usal: < or = 31 Refer ence range estab lishe d on post- puber irma patie nt popul ation . No pre-p ubert al refer ence range estab lishe d using this assay . For any patie nts for whom low Estra diol level s are antic ipate d (e.g. males , pre-p ubert al child debra and hypog onada l/pos t-men opaus al femal es), the [facility] Estra diol, Ultra sensi tive, LCMSM S assay is recom gunnar d (orde r code 68953 ). Ashlie goldberg note: patie nts being treat ed with the drug fulve stran t (Fasl odex( R)) have demon strat ed signi fican t inter feren ce in immun oassa y metho ds for estra diol measu remen t. The cross react ivity could lead to false ly eleva verito estra diol test resul ts leadi ng to an inapp ropri ate clini jacklyn asses sment of estro gen statu s. [facility] order code [id number] -Estr adiol , Ultra sensi tive LC/MS /MS demon strat es negli gible cross react ivity with fulve stran t. Not Available [employer] [address] [place] [address] [place], [address], 12/26/2024 05:51:47 12/26/19 25 12/26/2024 HCG, TOTAL , QN HCG, total, qn <5 mIU/m L normal Refer ence Range Nonpr egnan t or preme nopau stevo <5 Postm enopa usal <10 Value s from diffe rent assay metho ds may vary. The use of this assay to monit or or to diagn ose patie nts with cance r or any condi tion unrel ated to pregn fina has not been clear ed or appro armand by the FDA or the [facility] er of the assay . Not Available [employer] [facility] [address] [place], [address], 12/26/2024 05:51:48 03/11/20 25 03/11/2025 respi rator y patho gens DNA and RNA panel , PCR, nasop haryn x Covid negati ve Not Available [facility]) [address] [place], [address], 03/11/2025 17:05:40 03/11/20 25 03/11/2025 respi rator y patho gens DNA and RNA panel , PCR, nasop haryn x Rhinovirus positi ve Not Available [facility] ([facility]) [address] [place] [address], [phone], 03/11/2025 17:05:40 03/11/20 25 03/11/2025 respi rator y patho gens DNA and RNA panel , PCR, nasop haryn x Influenza A negati ve Not Available [facility] ([facility]) [address] [place] [address], [phone], 03/11/2025 17:05:40 03/11/20 25 03/11/2025 respi rator y patho gens DNA and RNA panel , PCR, nasop haryn x Influenza B negati ve Not Available [facility] ([facility]) [address] [place] [address], [address], 03/11/2025 17:05:40 03/11/20 25 03/11/2025 respi rator y patho gens DNA and RNA panel , PCR, nasop haryn x RSV positi ve Not Available [facility] ([facility]) [address] [place] [address], [phone], 03/11/2025 17:05:40 05/27/20 25 05/27/2025 URINA LYSIS WITH MICRO color YELLOW Not Available [facility] [address] [place] [address] [place], [address], 05/27/2025 13:44:10 05/27/2005/27/2025 URINA LYSIS WITH MICRO clarity CLEAR Not Available [facility] [address], [place], [address], 05/27/2025 13:44:10 05/27/2005/27/2025 URINA LYSIS WITH MICRO glu NEGATI VE Not Available [facility] [address], [place], [address], 05/27/2025 13:44:10 05/27/2005/27/2025 URINA LYSIS WITH MICRO bili NEGATI VE Not Available [facility] [address], [place], [address], 05/27/2025 13:44:10 05/27/2005/27/2025 URINA LYSIS WITH MICRO ket NEGATI VE Not Available [facility] [address], [place], [address], 05/27/2025 13:44:10 05/27/20 25 05/27/2025 URINA LYSIS WITH MICRO S.g 1.020 1.005- 1.025 Not Available [facility] [address], [place], [address], 05/27/2025 13:44:10 05/27/2005/27/2025 URINA LYSIS WITH MICRO pH 7.0 5.0-7. 0 Not Available [facility] [address], [place], [address], 05/27/2025 13:44:10 05/27/20 25 05/27/2025 URINA LYSIS WITH MICRO pro NEGATI VE Not Available [facility] [address], [place], [address], 05/27/2025 13:44:10 05/27/2005/27/2025 URINA LYSIS WITH MICRO uro 0.2 E.U./D L Not Available [facility] [address], [place], [address], 05/27/2025 13:44:10 05/27/20 25 05/27/2025 URINA LYSIS WITH MICRO nit NEGATI VE Not Available [facility] [address], [place], [address], 05/27/2025 13:44:10 05/27/2005/27/2025 URINA LYSIS WITH MICRO blo 1+ high Not Available [facility] [address], [place], [address], 05/27/2025 13:44:10 05/27/2005/27/2025 URINA LYSIS WITH MICRO philip NEGATI VE Not Available [facility] [address], [place], [address], 05/27/2025 13:44:10 05/27/2005/27/2025 URINA LYSIS WITH MICRO WBC 0-1 Not Available [facility] [address], [place], [address], 05/27/2025 13:44:10 05/27/2005/27/2025 URINA LYSIS WITH MICRO RBC 8-10 abnormal Not Available [facility] [address], [place], [address], 05/27/2025 13:44:10 05/27/2005/27/2025 URINA LYSIS WITH MICRO epi cells 1-3 abnormal Not Available [facility] [address], [place], [address], 05/27/2025 13:44:10 05/27/20 25 05/27/2025 URINA LYSIS WITH MICRO bacteria NEGATI VE Not Available [facility] [address] [facility] [address], [place], [address], 05/27/2025 13:44:10 05/27/20 25 05/27/2025 URINA LYSIS WITH MICRO other NEGATI VE Not Available [facility] [address] [facility] [address], [place], [address], 05/27/2025 13:44:10 05/27/20 25 05/29/2025 CULTU RE, URINE , ROUTI NE culture, urine, routine SEE NOTE CULTU RE, URINE , ROUTI NE Micro Numbe r: [id number] Test Statu s: Final Speci men Sourc e: Urine , clean catch Speci men Quali ty: Adequ ate Resul t: Mixed genit al samson isola verito. These super ficia l bacte jennifer are not indic ative of a urina ry tract infec tion. No furth er organ ism ident ifica tion is warra nted on this speci men. If clini olivier indic ated, recol lect clean -catc h, mid-s tream urine and trans lilliam immed iatel y to Urine Cultu re Trans port Tube. Not Available [facility] [address] [place], [address], 05/29/2025 02:45:50 Result Notes None recorded. 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 5 13:28:49 Surgical follow-up [id number] Sam YEAGER, [address], [address] [place] [address] 5, [facility] 5 13:28:49 Pain in pelvis [id number] Sam YEAGER, [address], [address] [place] [address] 5, [facility] 5 13:28:49 Patient encounter status [id number] Sam YEAGER, [address], [address] [place] [address], [facility] 5 13:28:49 Menometrorr hagia [id number] Sam YEAGER, [address], [address] [place] [address] 5, [facility] 5 13:28:49 Abnormal uterine bleeding 0585921153210 0 Active HAYDEE YEAGER, [address], [address] [place] [address], [facility] 5 13:28:49 Cervical radiculopat hy [id number] Sam YEAGER, [address], [address] [place] [address] 5, [facility] 5 13:28:49 Colitis 79088164 Active HAYDEE YEAGER, [address], [address] [place] [address] 5, [facility] 5 13:28:49 Chiari malformatio n 636437437 Active 2024 TASHA blanchard, [facility] 5 13:28:20 Endometrios is (clinical) 838491708 Active 2024 [facility], [facility] 13:32:08 Problem Notes None recorded. Procedures Surgical History Date Name Laterality Status Provider Name and Address Organization Details Recorded Time 08/09/19 23 hysteroscopy completed [facility] 09/08/2024 13:19:00 07/09/19 23 Date of Last Pap Smear completed [facility] 09/08/2024 13:19:15 09/09/19 21 endoscopy completed [facility] 09/08/2024 13:00:29 09/08/19 21 colonoscopy completed [facility] 09/08/2024 12:59:57 Imaging Results None recorded. Procedure Notes None recorded. Medical Equipment None Reported. Allergies Allergen ID Allergen Name Allergen Category Reaction Reaction Severity Criticality Documentation Date Start Date Code Code System Note Provider Name and Address Organization Details Recorded Time 17046 cefixime medicatio n Not available Not available Not available 05/14/20252024 93501 RxNorm HAYDEE YEAGER, [address], [address] , [facility] 13:28:35 71206 Suprax medicatio n hives Not available Not available 05/25/20252014 71338 9 RxNorm Not Available ricky - External [...] 09/08 completed tb skin test reads negative om 06-20-24 km/dh Not Available Not Available Not Available tramadol [...] 2022 active Not Available Not Available Not Dago mccartney ondansetr on 4 mg disintegr ating tablet [...] (BMI) Body weight Oxygen saturation Heart rate Body temperature Systolic And Diastolic Provider Name and Address Organization Details Last Updated DateTime 5 157.48 cm 23 kg/m2 64435.6 4 g 99 % 91 /min 98.6 [degF] 122/62 mm[Hg] Sandra Avelar [facility] 5 16:08:07 Date Recorded Body height Body mass index (BMI) Body weight Oxygen saturation Heart rate Body temperature Systolic And Diastolic Provider Name and Address Organization Details Last Updated DateTime 5 157.48 cm 23 kg/m2 13436.6 4 g 99 % 97 /min 98.6 [degF] 106/72 mm[Hg] TASHA GABRIEL [facility] 5 13:32:53 Date Recorded Body height Body mass index (BMI) Body weight Oxygen saturation Heart rate Body temperature Respiratory rate Systolic And Diastolic Provider Name and Address Organization Details Last Updated DateTime 157.48 cm 23.5 kg/m2 14674.6 2 g 99 % 80 /min 98.2 [degF] 17 /min 110/70 mm[Hg] KENIA MURPHY [facility] 17:02:18 Date Recorded Body height Body mass index (BMI) Body weight Body temperature Respiratory rate Heart rate Oxygen saturation Systolic And Diastolic Provider Name and Address Organization Details Last Updated DateTime 157.48 cm 23.4 kg/m2 54342.8 2 g 98.4 [degF] 18 /min 93 /min 97 % 100/70 mm[Hg] Carolyn Babcock [facility] 15:36:04 Date Recorded Body height Body mass index (BMI) Body weight Oxygen saturation Heart rate Provider Name and Address Organization Details Last Updated DateTime 05/14/2025 157.48 cm 24 kg/m2 75993.6 g 96 % 84 /min ABNER CORDOVA [facility] 13:02:24 Social History Question Answer Notes LastModified by Organizat ion Details LastModified Time Tobacco Smoking Status Current Every Day Smoker TASHA blanchard [facility] 09/08/2024 13:17:36 What Is Your Level Of Caffeine Consumption? Moderate [email or web address] Information not available 05/14/2025 What Is The Highest Grade Or Level Of School You Have Completed Or The Highest Degree You Have Received? [id number] [email or web address] Information not available 09/08/2024 Who Is Your Employer? 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 05/14/2025 [email or web address] Information not available 05/14/2025 What Is Your Current Pack Years? [email or web address] Information not available 09/08/2024 At What Age Did You Start Smoking Tobacco? 25 [email or web address] Information not available 09/08/2024 How Much Tobacco Do You Smoke? 0.5 PPD [email or web address] Information not available 09/08/2024 Has Tobacco Cessation Counseling Been Provided? Yes Information not available 09/08/2024 On What Date Was Tobacco Cessation Counseling Provided? 09/08/2024 Information not available 09/08/2024 How Many Years Have You Smoked Tobacco? 9 [email or web address] Information not available 09/08/2024 Are You Currently In School? No [email or web address] Information not available 09/08/2024 Sex: Unknown Functional Status Question Answer Note LastModified by Organizat ion Details LastModified Time Do you use any illicit or recreational drugs? No [email or web address] Information not available 09/08/2024 Do you or have you ever used any other forms of tobacco or nicotine? No Information not available 09/08/2024 What is your level of alcohol consumption? None Information not available 09/08/2024 Are you currently employed? 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 No [email or web address] Information not available 09/08/2024 Mental Status None recorded. Family History Relationship Description Onset Age of this Age Resolved Age Notes LastModified by Organization Details LastModified Time Mother Endometriosi s (clinical) matern al grandm other [email or web address] Not available 09/08/2024 13:15:52 Maternal Grandmother Malignant neoplasm of ovary [email or web address] Not available 2024 13:20:15 Maternal Aunt Malignant neoplasm of breast [email or web address] Not available 2024 13:20:40 Medical History No medical history recorded. Gynecological History Statement/Question Response Abnormal Pap N Date of Last Pap Smear 07/09/2022 Obstetrics History GPAL:G 2 P 0 0 0 2 Type Value Living 2 Total 2 Immunizations Vaccine Type Date Status Note Provider Nam e and Address Organization Details Recorded Time Hep A, adult 08/03/2009 completed DARIUS WAKEFIELD [address] [place], [address], [facility] 09/08/2024 13:50:49 Past Encounters Encounter ID Performer Location Encounter Start Date Encounter Closed Date Diagnosis/Indication Diagnosis SNOMED-CT Code Diagnosis ICD10 Code Diagnosis IMO Codes Diagnosis Note [id number] DARIUS DEAN [facility] ([facility]) [address] [place] [address] 06/17/2024 11:01:38 06/20/2024 13:56:29 Tuberculosis screening 798229407 Z11.1 [id number] DARIUS WAKEFIELD [facility] ([facility]) [address] [place] [address] 09/08/2024 11:52:13 09/08/2024 14:03:33 Chronic pelvic pain of female 480785444 R10.2 Chronic da ivan headache 7988749901 29395 R51.9 Chiari malformation 2531 34657 Q07.00 Pain of le ft shoulder joint 0630476563 2842692 M25.512 Irregular intermenstrual bleeding 95040117 N92.1 She has about a week a month where she doesn't have any bleeding. OCPs from Hers right now. [id number] DARIUS WAKEFIELD [facility] ([facility]) [address] [place] [address] 09/09/2024 09:31:43 09/09/2024 09:37:18 Adult health examination 095270237 Z00.00 [id number] DARIUS WAKEFIELD [facility] ([facility]) [address] [place] [address] 09/26/2024 13:38:23 09/26/2024 14:22:29 Generalized anxiety disorder 85593653 F41.1 [id number] DARIUS WAKEFIELD [facility] ([facility]) [address] [place] [address] 10/07/2024 14:13:26 10/07/2024 15:19:03 Chronic daily headache 0152752972 40704 R51.9 Generalize d anxiety disorder 12728900 F41.1 Continue on Lexapro. [id number] JORDYN PARKER ANDROID SOFTWARE ENGINEER [facility] ([facility]) [address] [place] [id number] 11/04/2024 15:31:30 11/08/2024 22:55:33 Herpes zoster 5234239 B02.9 [id number] Discussed use of antiviral. May use topical creams or cool washcloths to help with itching/bu rning sensation. If you develop fever or worsening s/s then return for re-evaluat ion [id number] DARIUS DEAN [facility] ([facility]) [address] [place] [address] 01/16/2025 15:59:36 01/20/2025 11:43:13 Acute migraine 0193653079 89944 G43.909 [id number] Administer ed Zavzpret nasal spray. After 15 minutes pt had mild relief of migraine. IM toradol and dexamethas one administer ed. Pt's arrived and will take pt home.Discu ssed to taken 25mg Benadryl when at home today. Push oral fluids including some caffeine. Rest in a cool dark room.If you develop fever, neck, or worsening s/s then f/u in ER [id number] HAYDEE YEAGER [facility] ([facility]) [address] [place] [address] 02/03/2025 13:05:43 02/03/2025 16:12:47 Insect bite of upper limb 965609982 S40.861A W57.XXXA [id number] Endometrio sis (clinical) 445088039 N80.9 Continues to have heavy vaginal bleeding. She has been setup for an ultrasound soon. [id number] OLEG FREEMAN [employer]ROID SOFTWARE ENGINEER [facility] ([facility]) [address] [place] [id number] 03/11/2025 16:51:45 03/16/2025 12:10:52 Nasal congestion 79438764 R09.81 83255 Increase po fluids. Rest. May use otc meds as needed for symptoms. Return to clinic with any new or worsening symptoms. [id number] DARIUS WAKEFIELD [facility] ([facility]) [address] [place] [address] 03/17/2025 15:29:37 03/17/2025 16:39:40 [facility] [id number] DARIUS WAKEFIELD [facility] ([facility]) [address] [place] [address] 05/14/2025 12:41:19 05/14/2025 14:16:27 Generalized anxiety disorder 58794798 F41.1 [id number] Continue on Lexapro. Health Concerns Section Related Observation LastModified by Organization Detai ls LastModified Time None Recorded Concern Status LastModified by Organization Details LastModified Time None Recorded Advance Directives Directive None Recorded Payers Insurance Date Sequence Insurance Name Policy Number Policy Benavidez Covered Member ID Benavidez Member ID Guarantor Name 08/19/2024 1 *SELF PAY* Ka douglennie Driscoll [place] 06/17/2025 1 [employer] [place]AC[place] - HMO) [id number] Atrsha [place] [id number] [facility] Venancio 05/13/2025 [place] [facility] ([facility] L) [id number] Tarsha [place] [id number] [facility] Venancio 04/13/2025 1 [facility] [id number] Tarsha Venancio [id number] Tarsha [facility] 05/13/2025 [place] [id number] Tarsha M Venancio [id number] [facility] Venancio Notes Date Note Type Note Provider Name and Address Organization Details Recorded Time 01/16/2025 text/html ROS as noted in the HPI walk inPt presents today with c/o a left side migraine for the last 5 days. States today she started to lose some of her peripheral vision in the left eye. Hx of migraines that present by her left eye. Has light sensitivity. Using BC powder and takes her amitryptiline daily. DARIUS DEAN [address] [place], [address], [facility]. 01/17/2025 19:31:38 02/03/2025 text/html Skin LesionRepor verito by PatientHPIFor associated symptoms, patient reportschills,night sweats, andmyalgiabut reportsno nausea,no vomiting, andno diarrhea. For location, patient reportselbow(bite). For quality, patient reportspainful,tender, andsore. For severity, patient reportsmoderate. For duration, patient reports1 days. For timing, patient reportsabrupt.ROS as noted in the HPI HAYDEE YEAGER, [address], [address], [facility] L[facility]ika[facility]C. 02/13/2025 11:52:59 03/11/2025 text/html ROS as noted in the HPI walk-in; PCP Haydee Yeager Patient c/o upper respiratory symptoms. Nasal congestion, cough. Recent ill contacts. OLEG FREEMAN, [facility] [address] [place] [address], [phone], [facility], LZuleikaLZuleikaC. 03/12/2025 08:01:10 03/17/2025 text/html CoughReported by PatientHPIFor context, patient reportssmokerbut reportshistory of asthma. For associated symptoms, patient reportsfever,chills,wh eezing,sputum production,chest wall tenderness,shortness of breath, andnasal discharge. For quality, patient reportsproductive,dry, andharsh. For severity, patient reportsmoderate. For duration, patient reportsconstant. For onset/timing, patient reportsgradual. For modifying factors, patient reportsotc medication.ROS as noted in the HPI She has had a cough for about a week. She has been coughing up green balls of flem. OTC medication & laying down seem to relieve her. HAYDEE YEAGER, [facility] [address] [place], [phone], [facility], LZuleikaLZuleikaCZuleika 03/17/2025 16:00:53 05/14/2025 text/html Generalized Anxi ety DisorderReported by Patient HAYDEE YEAGER, [facility] [address] [place], [address], [facility] 05/14/2025 13:37:14 OBGyn Episode No OBEpisode recorded.
--- OUTSIDE RECORDS SUMMARY | 2025-06-26 15:55 | XMS_ITS | Clinical Summary ---
Author Organization [facility] Address [address] [place] [address] Phone Care Team Providers Care Sales Expert Home Theater Name Role Phone Unavailable Primary Care Provider [...] 19+ 3-dose series) 02/07 HPV/Cotest (21-29) 2013 CERVICAL CANCER SCREENING 2022 HPV/Cotest (30-65) 2022 PAP SMEAR 2022 INFLUENZA VACCINE (#1) 2025 HPV VACCINES (No Doses Required) Completed Insurance [employer] [place]
--- OUTSIDE RECORDS SUMMARY | 2025-06-26 15:55 | XMS_ITS | Patient Health Record ---
Author Organization [facility] Address [address] [place] [address] Care Team Providers Care Secretary Of Police Name Role Phone Mau Ricardo Unavailable [phone] Melissa Montes Unavailable [phone] Reason For Referral Reason PELVIC PAIN note s ent to referring unable to accept. 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
[2025-06-26 16:11] LABS: Hematocrit 37.1 % (36-47); Hemoglobin 12.40 g/dL (11.27-16.99); Mean Corpuscular HGB Conc 33.4 g/dL (30-55); Mean Corpuscular Hemoglobin 30.9 pg (27-33); Mean Corpuscular Volume 92.5 fl (85-98); Nucleated Red Blood Cells % 0 %; Platelet Count 234 10^3/cmm (157-399); Red Blood Count 4.01 10^6/uL (3.85-5.65); White Blood Count 4.51 10^3/uL (3.29-11.43)
--- NOTE | 2025-06-26 16:21 | ED_ITS ---
HPI - Female Genitourinary 2 General: Chief complaint: Urogenital-Female Stated complaint: Post Surgery 06/23 open incision Time Seen by Provider: 06/26/25 15:59 History of Present Illness: 35-year-old female presents emergency ro om she is concerned about the trocar site from her recent laparoscopic assisted vaginal hysterectomy. She has a trocar site in the left lower quadrant the Dermabond came off and the wound opened up. She has quite a bit of abdominal tenderness typical postop pain she has not any drainage from the wound no fever sweats or chills Associated symptoms: Deny abdominal pain Related Data Home Medications ?Medication ?Instructions ?Recorded ?Confirmed amitriptyline 25 mg tablet 25 mg PO DAILY 02/11/25 escitalopram oxalate 10 mg tablet 10 mg PO DAILY 02/1106/22/25 Previous Rx's ?Medication ?Instructions ?Recorded albuterol sulfate 90 mcg/actuation 2 puff inhalation Q ID PRN 03/21/23 aerosol inhaler shortness of breath or wheez ing #6.7 grams ondansetron 4 mg disintegrating 4 mg PO Q8H PRN nausea and 02/11/25 tablet vomiting #14 tabs tramadol 50 mg tablet 50 mg PO BID PRN pain #30 ta bs 06/15/25 oxycodone-acetaminophen 5 mg-325 1 tab PO Q8H PRN pain #30 tabs 06/24/25 mg tablet (Percocet) Allergies Allergy/AdvReac Type Severity Reaction Status Date / Time cefixime (From Suprax) Allergy ALGY-Hives Verified 06/23/25 11:25 Review of Systems 2 Const: Denies: fever(s) or chills Card: Denies: chest pain Resp: Denies: dyspnea GI: Denies: abdominal pain : Denies: dysuria, urinary frequency or urinary urgency Musc: Denies: neck pain or back pain Skin/Breast: Denies: rash PFSH ED 2 PFSH: Medical History No pertinent past medical history neghx:htn,dm,thyroid,dvt/pe PCP: Family History Unknown Cancer Great great grandmother, breast cancer x3 maternal aunts, breast cancer maternal grandmother, ovarian cancer maternal aunt, ovarian cancer maternal grandmother, uterine cancer maternal grandmother, bladder cancer maternal grandmother, diabetes x2 maternal uncles, diabetes maternal grandmother, HTN and stroke Maternal uncle, HTN and Heart disease Other COPD (chronic obstructive pulmonary disease) Dementia Diabetes Social History Smoking and tobacco/nicotine status: current every day tobacco/nicotine user cigarettes Substance/Drug Use: never Do you think of yourself as: Straight/Heterosexual Physical Exam 2 Const: COMMON NORMALS: no acute distress GENERAL APPEARANCE: cooperative and comfortable ORIENTATION/CONSCIOUSNESS: Yes awake, Yes oriented to person, Yes oriented to place and Yes oriented to time HENMT: COMMON NORMALS: normocephalic, atraumatic and hearing grossly normal bilaterally HEAD & SCALP: normocephalic and atraumatic Resp: COMMON NORMALS: normal respiratory effort, No retractions, No use of accessory muscles and clear to auscultation bilaterally AUSCULTATION: clear to auscultation bilaterally Cardio: COMMON NORMALS: regular rate, regular rhythm and No murmurs present (Cardio) RATE: regular rate RHYTHM: regular rhythm GI: COMMON NORMALS: Soft to palpation and No hepatosplenomegaly present A USCULTATION: Yes normoactive bowel sounds PALPATION: Yes Soft to palpation, No Tenderness to palpation present (GI), No Guarding due to palpation present (GI) and Yes No hepatosplenomegaly present OTHER: General diffuse tenderness consistent with postop status. No signs of incisional drainage. There is mild dehiscence of the trocar wound in the left lower quadrant Extremity: COMMON NORMALS: normal to inspection, capillary refill normal, no clubbing, cyanosis or edema, no calf tenderness and no pedal edema Neuro: SENSORIUM/ORIENTATION: Yes oriented to person, Yes oriented to place and Yes oriented to time Skin: COMMON NORMALS: no rashes or lesions noted GENERAL SKIN EXAM: no rashes or lesions noted Course 2 Vital Signs: Vital signs: Vital Signs Temperature 98.3 F 06/26/25 15:51 Pulse Rate 91 06/26/25 16:23 Respiratory Rate 16 06/26/25 16:23 Blood Pressure 116/80 06/26/25 16:23 Pulse Oximetry 98 06/26/25 16:23 Oxygen Delivery Me thod Room Air 06/26/25 15:51 MDM - Female Medical Decision Making Medical decision making Social determinants: None I reviewed the patient's medical record. I reviewed the patient's current home meds. Alternate historians: None Differential diagnosis: Wound dehiscence, postop infection Lab Review: CBC hemoglobin is normal white count normal. Imaging: None Assessment of risk Level of risk: Low Hospitalization considerations: No indication for hospitalization Reexamination: Unchanged Assessment and plan: Examination of the wound there is some dehiscence there but no evidence of infection no active bleeding it is only mildly open. Was reinforced with Steri-Strip using benzocaine. Offered option of suture patient declined. Wound care instructions given follow-up with surgeon as previously scheduled Lab Data 06/26/25 16:08 Laboratory Results WBC 4.51 10^3/uL (3.29-11.43) 06/26/25 16:08 RBC 4.01 10^6/uL (3.85-5.65) 06/26/25 16:08 Hgb 12.40 g/dL (11.27-16.99) 06/26/25 16:08 Hct 37.1 % (36-47) 06/26/25 16:08 MCV 92.5 fl (85-98) 06/26/25 16:08 MCH 30.9 pg (27-33) 06/26/25 16:08 MCHC 33.4 g/dL (30-55) 06/26/25 16:08 RDW 13.1 % (12.1-15.1) 06/26/25 16:08 Plt Count 234 10^3/cmm (157-399) 06/26/25 16:08 MPV 10.0 fL (7.4-10.4) 06/26/25 16:08 Neut % (Auto) 41.9 % 06/26/25 16:08 Lymph % (Auto) 41.5 % 06/26/25 16:08 [place] % (Auto) 10.2 % 06/26/25 16:08 Eos % (Auto) 4.7 % 06/26/25 16:08 Baso % (Auto) 1.3 % 06/26/25 16:08 Neut # (Auto) 1.89 10^3/uL (1.8-7.7) 06/26/25 16:08 Lymph # (Auto) 1.9 10^3/uL (0.8-4.8) 06/26/25 16:08 [place] # (Auto) 0.5 10^3/uL (0.2-0.9) 06/26/25 16:08 Eos # (Auto) 0.2 10^3/uL (0.0-0.8) 06/26/25 16:08 Baso # (Auto) 0.1 10^3/uL (0.0-0.1) 06/26/25 16:08 Nucleated RBC % (auto) 0 % 06/26/25 16:08 Nucleated RBCs # 0.0 /100WBC 06/26/25 16:08 No radiology studies performed this visit Discharge Plan Discharge Patient Disposition: Home Clinical Impression: Abdominal wound dehiscence, S/P vaginal hysterectomy Condition: Stable Prescriptions: No Action albuterol sulfate 90 mcg/actuation HFA aerosol inhaler 2 puff inhalation QID PRN (Reason: shortness of breath or wheezing) Qty: 6.7 0RF amitriptyline 25 mg tablet 25 mg PO DAILY escitalopram oxalate 10 mg tablet 10 mg PO DAILY ondansetron 4 mg tablet,disintegrating 4 mg PO Q8H PRN (Reason: nausea and vomiting) Qty: 14 1RF Rx Instructions: take one tab every 8 hours as needed tramadol 50 mg tablet 50 mg PO BID PRN (Reason: pain) Qty: 30 0RF oxycodone-acetaminophen [Percocet] 5-325 mg tablet 1 tab PO Q8H PRN (Reason: pain) Qty: 30 0RF Discharge Orders: Discharge ED (Routine); Ordered 06/26/25 Ordered By: Landon Cruz Referrals: Haydee Fernández FNP [Primary Care Provider, Unknown] Discharge Diet: Usual diet Discharge Activity: Increase activity as tolerated Patient Instructions: Opioid Safety, Pain Management, Patient Portal & Blaze Instructions Activity Restrictions/Additional Instructions: [facility]. It is very important that you follow up as instructed or that you return to the Emergency Department should you have concerns or if your condition changes or worsens in any way. Emergency department visits are focused on emergent conditions, in some cases you may require further evaluation on an outpatient basis. You are seen in the emergency room with concern over the wound from your surgery on your left side of your abdomen. The Dermabond (skin glue) had come off and the wound had opened up. We discussed placing a suture versus doing a Steri- Strip and you opted for the Steri-Strip. Steri-Strip was applied with skin glue. Recommended that you leave it in place for at least the next 5 to 7 days. We did give you extra Steri-Strips to reapply if it looks like it is coming loose. Follow-up with your gynecology surgeon as needed. CBC done at today's visit showed a normal white count and normal hemoglobin. (Please note that included in your discharge packet is information concerning opioid safety and pain management. This information is given to all patients were discharged from the ER regardless of their discharge diagnosis or the medicines they usually take or are prescribed.) Print Language: Yakut Coding Level of Care Code ED Fisheries Technical Officer for Jhoan Palmer
[2025-06-26 16:23] VITALS: BP 116/80; PULSE 91; RESP 16; O2SAT 98
== END 2025-06-26 16:22 | disposition home or self-care (01) ==
PROVIDERS: Emergency Provider Family Medicine; PCP Nurse Practitioner Family
DX: T81.321A Disruption or dehiscence of closure of internal operation (surgical) wound of abdominal wall muscle or fascia, initial encounter (principal); X58.XXXA Exposure to other specified factors, initial encounter; Z90.710 Acquired absence of both cervix and uterus; F17.210 Nicotine dependence, cigarettes, uncomplicated
CPT/HCPCS: 85025; 99283